=== PATIENT | female | born 1965 | race Caucasian/White ===

== ENCOUNTER 2022-06-02 11:27 | Emergency (ER) | payer MEDICARE, MEDICAID, SELFPAY ==
[2022-06-02 11:53] VITALS: BP 152/84; PULSE 100; RESP 20; TEMP 36.8; O2SAT 100; BMI 27.0
--- NOTE | 2022-06-02 14:58 | ED.SKABFB ---
HPI - Skin/Abscess/Foreign Bdy General Time Seen by Provider: 14:58 Date Seen: 06/02/22 Chief complaint: Skin/Abscess/Foreign Body Stated complaint: Cellulitis on left leg Time Seen by Provider: 06/02/22 11:32 Source: RN notes reviewed, old records reviewed and other (Attendant) Mode of arrival: ambulatory Limitations: no limitations and other History of Present Illness HPI narrative: 56-year-old resident at [facility] with profound developmental delay, recurrent cellulitis, history right lower extremity wound, delayed healing comes to the emergency room with her inspector health care facilities for evaluation regarding redness on her left leg. This was noticed today and was worrisome for cellulitis. No recent injury in this area. Does not appear to be causing discomfort and has been no fever or vomiting. Also noted are small red spots along the neckline but not beneath any of the clothing. No history of respiratory distress, vomiting, fever. Cecil comes from seeing the dentist this morning. Had received 2 mg of Ativan prior to that appointment. Related Data Home Medications Medication Instructions Recorded Confirmed cranberry complex 06/02/22 fiber tab PO 06/02/22 fluoxetine 40 mg capsule mg 06/02/22 loratadine 10 mg tablet mg 06/02/22 multivitamin with folic acid 400 1 tab PO DAILY 06/02/22 06/02/22 mcg tablet (Daily-Kathya (with folic acid)) oxybutynin chloride 10 mg mg PO 06/02/22 tablet,extended release 24 hr xanazine 06/02/22 Previous Rx's Medication Instructions Recorded cefdinir 300 mg capsule 300 mg PO Q12H 7 days #14 caps 06/02/22 Allergies Allergy/AdvReac Type Severity Reaction Status Date / Time Sulfa (Sulfonamide Allergy Intermediate Verified 06/02/22 12:03 Antibiotics) Review of Systems Status of ROS: Reports: 6 or more systems reviewed and unremarkable except as noted in History and below Const: Denies: fever or chills ENMT: Denies: difficulty swallowing Cardio: Denies: swelling of feet/ankles or shortness of breath with exertion Resp: Denies: shortness of breath or cough GI: Denies: vomiting or difficulty swallowing Exam Narrative: Exam Narrative: PAST HISTORY:? Includes neurogenic bladder, recurrent UTIs though apparently it is a little less frequent. Excessive compulsive. Recurrent diarrhea/chronic diarrhea, chronic rhinitis, movement disorder, anxiety, hydronephrosis of the left kidney, history of lacunar infarcts noted on MRI in 2018, severe developmental delay,? Suprapubic catheter, history of cellulitis, stasis ulcer on right ankle, eczema, history of head banging, history of Raynaud's. Const: Vital Signs, click to edit/add: Vital Signs - 24 hr 06/02/22 11:53 Temperature 98.3 F Pulse Rate [Pulse Oximeter] 100 Respiratory Rate 20 Blood Pressure [Ri ght Upper Arm] 152/84 H Pulse Oximetry 100 Oxygen Delivery Me thod Room Air Patient is awake and nontoxic in appearance. I have met Cecil in the past. She is fairly cooperative with exam. On her neck area and she has scattered less than 10 erythematous non papular spots. Slightly raised. One the of these areas noted to be approximately quarter-sized. Not warm to the touch. No drainage. Heart with regular rate and rhythm. Lungs are clear to auscultation. Lower extremities show left leg to have fairly well-demarcated erythema at the mid to distal aspect of the calf. I do not note any obvious open wounds or weeping here this area is warm to the touch. It is not swollen. Documenting provider has reviewed patient's vital signs: yes Course Course Hospital Course: Patient noted to have previous history of cellulitis. Cultures from a wound in 2014 note Enterobacter resistant to Ancef but per susceptible to 3rd generation cephalosporin. Strep faecalis also noted to be present in this wound with resistance to doxycycline. Vital Signs Vital signs: Initial Vital Signs Temperature 98.3 F 06/02/22 11:53 Temperature Source Temporal Artery Scan 06/02/22 11:53 Pulse Rate 100 06/02/22 11:53 Respiratory Rate 20 06/02/22 11:53 Blood Pressure 152/84 H 06/02/22 11:53 Blood Pressure Mean 106 06/02/22 11:53 Blood Pressure Position Sitting 06/02/22 11:53 Pulse Oximetry 100 06/02/22 11:53 Oxygen Delivery Method 06/02/22 11:53 Vital Signs Temperature 98.3 F 06/02/22 11:53 Pulse Rate 100 06/02/22 11:53 Respiratory Rate 20 06/02/22 11:53 Blood Pressure 152/84 H 06/02/22 11:53 Pulse Oximetry 100 06/02/22 11:53 Oxygen Delivery Method 06/02/22 11:53 Temperature 98.3 F 06/02/22 11:53 Pulse Rate 100 06/02/22 11:53 Respiratory Rate 20 06/02/22 11:53 Blood Pressure 152/84 H 06/02/22 11:53 Pulse Oximetry 100 06/02/22 11:53 Oxygen Delivery Method 06/02/22 11:53 MDM - Skin/Abscess/Foreign Bdy MDM Narrative Medical decision making narrative: 1. Cellulitis-at this time no evidence of fever, weeping or open wound. However, concerning for cellulitis as this area is warm to the touch. Given history of a 1st generation resistant organism and doxycycline resistant organism will start patient on a 3rd generation cephalosporin Omnicef. Omnicef 300 mg p.o. b.i.d. x7 days. I would like patient to follow up with with her primary MD in 72 hours for recheck. If she has only modest improvement of her symptoms would recommend extending Omnicef to 10 days. If patient is noted to have worsening symptoms she will likely need IV antibiotics he. This would require sedation in order to do blood work. 2. Bug bites-patient appears to have multiple bug bites on neck and front of chest. Perhaps 1 of those has mild erythema indicating a hive like formation. This is only in the exposed skin and nothing under the shirt and thus I do think this is likely dogs. No evidence of infection and would continue to monitor. 3. Disposition-patient discharged home in the care of her inspector health care facilities. Return as needed to the emergency room for worsening symptoms. Medical Records Attestation: I reviewed the patient's medical records. Discharge Plan Discharge Clinical Impression: Cellulitis Patient Disposition: Home, Self-Care Condition: Unchanged Instructions: Cellulitis (ED) Additional Instructions: Start antibiotic today. Follow-up with primary MD if not improving in the next 48 hours. Return to the emergency room for worsening symptoms especially fever and increasing redness. Return as needed. Prescriptions: New cefdinir 300 mg capsule 300 mg PO Q12H 7 Days Qty: 14 0RF No Action fluoxetine 40 mg capsule oxybutynin chloride 10 mg tablet extended release 24hr PO Label Comments: TAKE TWO TABLETS BY MOUTH EVERY DAY GENERIC FOR DITROPAN XL loratadine 10 mg tablet Label Comments: TAKE ONE TABLET BY MOUTH EVERY DAY FOR ANTIHISTAMINE xanazine 12.5 mg multivitamin with folic acid [Daily-Kathya (with folic acid)] 400 mcg tablet 1 tab PO DAILY cranberry complex fiber Tablet PO Follow Up/Referrals: Car Mock MD [Primary Care Provider] - Stand Alone Forms: [employer] Info Instructions
== END 2022-06-02 15:46 | disposition home or self-care (01) ==
PROVIDERS: Emergency Provider Family Medicine; PCP Family Medicine
DX: L03.116 Cellulitis of left lower limb (principal)
CPT/HCPCS: 99283; 99284

== ENCOUNTER 2023-04-12 09:07 | Outpatient (CLI) | payer MEDICARE, MEDICAID, SELFPAY | END 2023-04-12 09:08 | disposition home or self-care (01) | PROVIDERS: PCP Family Medicine; Visit Provider Nurse Practitioner Family | DX: I87.331 Chronic venous hypertension (idiopathic) with ulcer and inflammation of right lower extremity (principal); L97.319 Non-pressure chronic ulcer of right ankle with unspecified severity; I87.2 Venous insufficiency (chronic) (peripheral); L30.9 Dermatitis, unspecified; F79 Unspecified intellectual disabilities | CPT/HCPCS: 99214 ==

== ENCOUNTER 2023-04-19 13:39 | Outpatient (CLI) | payer MEDICARE, MEDICAID, SELFPAY | END 2023-04-19 13:40 | disposition home or self-care (01) | LOC: WOUND 13:40 | PROVIDERS: PCP Family Medicine; Visit Provider Nurse Practitioner Family | DX: I87.331 Chronic venous hypertension (idiopathic) with ulcer and inflammation of right lower extremity (principal); L97.319 Non-pressure chronic ulcer of right ankle with unspecified severity; I87.2 Venous insufficiency (chronic) (peripheral) | CPT/HCPCS: 11042 ==

== ENCOUNTER 2023-05-03 08:54 | Outpatient (CLI) | payer MEDICARE, MEDICAID, SELFPAY | END 2023-05-03 08:55 | disposition home or self-care (01) | LOC: WOUND 08:54 | PROVIDERS: PCP Family Medicine; Visit Provider Nurse Practitioner Family | DX: I87.331 Chronic venous hypertension (idiopathic) with ulcer and inflammation of right lower extremity (principal); L97.312 Non-pressure chronic ulcer of right ankle with fat layer exposed | CPT/HCPCS: 97597 ==

== ENCOUNTER 2023-05-10 09:00 | Outpatient (CLI) | payer MEDICARE, MEDICAID, SELFPAY | END 2023-05-10 09:01 | disposition home or self-care (01) | LOC: WOUND 09:00 | PROVIDERS: PCP Family Medicine; Visit Provider Nurse Practitioner Family | DX: I87.331 Chronic venous hypertension (idiopathic) with ulcer and inflammation of right lower extremity (principal); L97.312 Non-pressure chronic ulcer of right ankle with fat layer exposed | CPT/HCPCS: 11042 ==

== ENCOUNTER 2023-05-17 09:07 | Outpatient (CLI) | payer MEDICARE, MEDICAID, SELFPAY | END 2023-05-17 09:08 | disposition home or self-care (01) | LOC: WOUND 09:07 | PROVIDERS: PCP Family Medicine; Visit Provider Nurse Practitioner Family | DX: I87.331 Chronic venous hypertension (idiopathic) with ulcer and inflammation of right lower extremity (principal); L97.312 Non-pressure chronic ulcer of right ankle with fat layer exposed | CPT/HCPCS: 97597 ==

== ENCOUNTER 2023-05-24 10:32 | Outpatient (CLI) | payer MEDICARE, MEDICAID, SELFPAY | END 2023-05-24 10:33 | disposition home or self-care (01) | LOC: WOUND 10:32 | PROVIDERS: PCP Family Medicine; Visit Provider Nurse Practitioner Family | DX: I87.331 Chronic venous hypertension (idiopathic) with ulcer and inflammation of right lower extremity (principal); L97.312 Non-pressure chronic ulcer of right ankle with fat layer exposed | CPT/HCPCS: 97597 ==

== ENCOUNTER 2023-05-31 11:38 | Outpatient (CLI) | payer MEDICARE, MEDICAID, SELFPAY | END 2023-05-31 11:39 | disposition home or self-care (01) | LOC: WOUND 11:38 | PROVIDERS: PCP Family Medicine; Visit Provider Nurse Practitioner Family | DX: I87.331 Chronic venous hypertension (idiopathic) with ulcer and inflammation of right lower extremity (principal); I87.2 Venous insufficiency (chronic) (peripheral); L97.312 Non-pressure chronic ulcer of right ankle with fat layer exposed | CPT/HCPCS: 97597 ==

== ENCOUNTER 2023-06-07 11:33 | Outpatient (CLI) | payer MEDICARE, MEDICAID, SELFPAY | END 2023-06-07 11:34 | disposition home or self-care (01) | LOC: WOUND 11:33 | PROVIDERS: PCP Family Medicine; Visit Provider Nurse Practitioner Family | DX: I87.331 Chronic venous hypertension (idiopathic) with ulcer and inflammation of right lower extremity (principal); I87.2 Venous insufficiency (chronic) (peripheral); L97.312 Non-pressure chronic ulcer of right ankle with fat layer exposed | CPT/HCPCS: 97602; 99213 ==

== ENCOUNTER 2023-06-14 11:23 | Outpatient (CLI) | payer MEDICARE, MEDICAID, SELFPAY | END 2023-06-14 11:24 | disposition home or self-care (01) | LOC: WOUND 11:23 | PROVIDERS: PCP Family Medicine; Visit Provider Nurse Practitioner Family | DX: I87.331 Chronic venous hypertension (idiopathic) with ulcer and inflammation of right lower extremity (principal); L97.312 Non-pressure chronic ulcer of right ankle with fat layer exposed | CPT/HCPCS: 97597 ==

== ENCOUNTER 2023-06-21 11:32 | Outpatient (CLI) | payer MEDICARE, MEDICAID, SELFPAY | END 2023-06-21 11:33 | disposition home or self-care (01) | LOC: WOUND 11:32 | PROVIDERS: PCP Family Medicine; Visit Provider Nurse Practitioner Family | DX: I87.331 Chronic venous hypertension (idiopathic) with ulcer and inflammation of right lower extremity (principal); L97.312 Non-pressure chronic ulcer of right ankle with fat layer exposed | CPT/HCPCS: 97602; 99213 ==

== ENCOUNTER 2023-06-28 11:28 | Outpatient (CLI) | payer MEDICARE, MEDICAID, SELFPAY | END 2023-06-28 11:29 | disposition home or self-care (01) | LOC: WOUND 11:28 | PROVIDERS: PCP Family Medicine; Visit Provider Nurse Practitioner Family | DX: I87.331 Chronic venous hypertension (idiopathic) with ulcer and inflammation of right lower extremity (principal); L97.312 Non-pressure chronic ulcer of right ankle with fat layer exposed; F79 Unspecified intellectual disabilities | CPT/HCPCS: 97602; 99213 ==

== ENCOUNTER 2023-07-05 11:28 | Outpatient (CLI) | payer MEDICARE, MEDICAID, SELFPAY | END 2023-07-05 11:29 | disposition home or self-care (01) | LOC: WOUND 11:28 | PROVIDERS: PCP Family Medicine; Visit Provider Family Medicine | DX: I87.331 Chronic venous hypertension (idiopathic) with ulcer and inflammation of right lower extremity (principal); L97.312 Non-pressure chronic ulcer of right ankle with fat layer exposed; I87.2 Venous insufficiency (chronic) (peripheral) | CPT/HCPCS: 97602; 99213 ==

== ENCOUNTER 2023-07-12 11:30 | Outpatient (CLI) | payer MEDICARE, MEDICAID, SELFPAY | END 2023-07-12 11:31 | disposition home or self-care (01) | LOC: WOUND 11:31 | PROVIDERS: PCP Family Medicine; Visit Provider Nurse Practitioner Family | DX: I87.331 Chronic venous hypertension (idiopathic) with ulcer and inflammation of right lower extremity (principal); I87.2 Venous insufficiency (chronic) (peripheral); L97.312 Non-pressure chronic ulcer of right ankle with fat layer exposed | CPT/HCPCS: 97602; 99213 ==

== ENCOUNTER 2023-08-09 09:03 | Outpatient (CLI) | payer MEDICARE, MEDICAID, SELFPAY | END 2023-08-09 09:04 | disposition home or self-care (01) | LOC: WOUND 09:03 | PROVIDERS: PCP Family Medicine; Visit Provider Nurse Practitioner Family | DX: I87.331 Chronic venous hypertension (idiopathic) with ulcer and inflammation of right lower extremity (principal); L97.312 Non-pressure chronic ulcer of right ankle with fat layer exposed; I87.2 Venous insufficiency (chronic) (peripheral) | CPT/HCPCS: 97597 ==

== ENCOUNTER 2023-08-24 11:35 | Outpatient (CLI) | payer MEDICARE, MEDICAID, SELFPAY | END 2023-08-24 11:36 | disposition home or self-care (01) | LOC: WOUND 11:35 | PROVIDERS: PCP Family Medicine; Visit Provider Physician Assistant | DX: I87.331 Chronic venous hypertension (idiopathic) with ulcer and inflammation of right lower extremity (principal); I87.2 Venous insufficiency (chronic) (peripheral); L97.318 Non-pressure chronic ulcer of right ankle with other specified severity | CPT/HCPCS: 97597 ==

== ENCOUNTER 2023-09-06 11:03 | Outpatient (CLI) | payer MEDICARE, MEDICAID, SELFPAY | END 2023-09-06 11:04 | disposition home or self-care (01) | LOC: WOUND 11:03 | PROVIDERS: PCP Family Medicine; Visit Provider Nurse Practitioner Family | DX: I87.331 Chronic venous hypertension (idiopathic) with ulcer and inflammation of right lower extremity (principal); I87.2 Venous insufficiency (chronic) (peripheral); L97.318 Non-pressure chronic ulcer of right ankle with other specified severity | CPT/HCPCS: G0463 ==

== ENCOUNTER 2024-03-14 17:37 | Outpatient (CLI) | payer MEDICARE, MEDICAID, SELFPAY | END 2024-03-14 17:38 | disposition home or self-care (01) | LOC: NFLDREF 03-16 10:35 | PROVIDERS: PCP Family Medicine; Referring Provider Family Medicine; Visit Provider Nurse Practitioner Family | DX: N30.00 Acute cystitis without hematuria (principal) | CPT/HCPCS: 87086; 87186 ==

== ENCOUNTER 2024-05-25 08:38 | Emergency (ER) | payer MEDICARE, MEDICAID, SELFPAY ==
[2024-05-25 08:46] VITALS: BP 178/84; PULSE 103; RESP 16; TEMP 36.5; O2SAT 100
[2024-05-25] MEDS: LORazepam 1 MG TABLET PO (09:55)
--- NOTE | 2024-05-25 10:16 | ED_ITS ---
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 Patient has a chronic suprapubic catheter in place and the staff noticed that the connection between the tube in the bag was cracked. Generally she gets her catheter changed at the house by their nurse, they could not get a hold of the nurse today and so they brought her to the ER. Related Data Home Medications ?Medication ?Instructions ?Recorded ?Confirmed cranberry complex 06/02/22 10/06/23 fiber tab PO 06/02/22 10/06/23 fluoxetine 40 mg capsule mg 06/02/22 10/06/23 loratadine 10 mg tablet mg 06/02/22 10/06/23 multivitamin with folic acid 400 1 tab PO DAILY 06/02/22 10/06/23 mcg tablet (Daily-Kathya (with folic acid)) oxybutynin chloride 10 mg mg PO 06/02/22 10/06/23 tablet,extended release 24 hr xanazine 06/02/22 10/06/23 calcium carbonate 400 mg/5 mL oral mg PO 03/14/24 03/14/24 suspension lorazepam 1 mg tablet 1 mg PO BID 03/14/24 03/14/24 simethicone 125 mg capsule (Gas 125 mg PO TID-QID PRN 03/14/24 03/14/24 Relief (simethicone)) tetrabenazine 12.5 mg tablet 12.5 mg PO QDAY 03/14/24 03/14/24 Previous Rx's ?Medication ?Instructions ?Recorded guaifenesin 1,200 mg tablet, 1,200 mg PO BID #60 tabs 09/01/23 extended release 12 hr Allergies Allergy/AdvReac Type Severity Reaction Status Date / Time Sulfa (Sulfonamide Allergy Intermediate Verified 03/14/24 17:17 Antibiotics) Review of Systems Status of ROS: Reports: 6 or more systems reviewed and unremarkable except as noted in History and below (Obtained per staff) [facility] Medical History Profound developmental delay ?R62.50 - Unspecified lack of expected normal physiological development in childhood (ICD-10) Social History Smoking Status: Never smoker Do you use any of these nicotine containing products: None Second hand tobacco smoke exposure: No How often do you have a drink containing alcohol: never How often do you have six or more drinks on one occasion: Never AUDIT-C Alcohol total score: 0 Non-prescribed substance use: denies use service: No Exam Narrative: Exam Narrative: Well-nourished patient patient in no acute distress. Patient is nonverbal, not cooperative. She does not appear ill or toxic. Unable to perform an abdominal exam, suprapubic catheter is in place without evidence of infection or maceration of the skin from a very quick view. The tube that connects to the bag on the other and does have a crack in it at the site of insertion into the bag. Const: Vital Signs, click to edit/add: Vital Signs - 24 hr 05/25/24 08:46 Temperature 97.7 F Pulse Rate [Pulse Oximeter] 103 H Respiratory Rate 16 Blood Pressure [Ri ght Upper Arm] 178/84 H Pulse Oximetry 100 Oxygen Delivery Me thod Room Air Course Course ED Course: I spoke to Minnie at [facility] who stated that they can get a hold of their nurse today. We discussed that this is not an emergency that needs to be done in the emergency department and that it could wait another couple of days even until they can get a hold of their nurse. Minnie and the patient's POA would like the catheter changed here. They stated that they give her Ativan 1 they have to do this procedure at the house in the requesting that we do the same. Therefore, we did give her a dose of Ativan while she was here. Unfortunately, it was later discovered that we do not have the appropriate equipment, specifically a 22 Palestinian, to change her catheter. This was discussed with Minnie. Patient will be sent back to [facility] with the do have the proper equipment and again, the catheter can be changed any time the next several days. This is not a medical emergency. Vital Signs Vital signs: Initial Vital Signs Temperature 97.7 F 05/25/24 08:46 Temperature Source Temporal Artery Scan 05/25/24 08:46 Pulse Rate 103 H 05/25/24 08:46 Pulse Rhythm Regular 05/25/24 08:46 Pulse Strength 3+ Normal 05/25/24 08:46 Respiratory Rate 16 05/25/24 08:46 Blood Pressure 178/84 H 05/25/24 08:46 Blood Pressure Mean 115 H 05/25/24 08:46 Blood Pressure Position Sitting 05/25/24 08:46 Pulse Oximetry 100 05/25/24 08:46 Oxygen Delivery Method Room Air 05/25/24 08:46 Vital Signs Temperature 97.7 F 05/25/24 08:46 Pulse Rate 103 H 05/25/24 08:46 Respiratory Rate 16 05/25/24 08:46 Blood Pressure 178/84 H 05/25/24 08:46 Pulse Oximetry 100 05/25/24 08:46 Oxygen Delivery Method Room Air 05/25/24 08:46 Temperature 97.7 F 05/25/24 08:46 Pulse Rate 103 H 05/25/24 08:46 Respiratory Rate 16 05/25/24 08:46 Blood Pressure 178/84 H 05/25/24 08:46 Pulse Oximetry 100 05/25/24 08:46 Oxygen Delivery Method Room Air 05/25/24 08:46 Medications Administered Medications: Discontinued Medications Generic Name Dose Route Start Last Admin Trade Name Freq PRN Reason Stop Dose Admin Lorazepam 1 mg 05/25/24 09:46 05/25/24 09:55 Lorazepam 1 Mg Tablet PO 05/25/24 09:47 1 mg ONCE ONE Administration Medical Decision Making MDM Narrative Medical decision making narrative: Small crack in the distal tubing of the suprapubic catheter. Plan per above Discharge Plan Discharge Clinical Impression: Chronic suprapubic catheter, Suprapubic catheter dysfunction Patient Disposition: Home w/ Parent or Adult Condition: Unchanged Additional Instructions: We unfortunately did not have the proper equipment to change her catheter in the emergency department. Recommend changing it at the house as you normally would. Can be done in the next several days. Prescriptions: No Action guaifenesin 1,200 mg tablet extended release 12hr 1,200 mg PO BID Qty: 60 0RF tetrabenazine 12.5 mg tablet 12.5 mg PO QDAY simethicone [Gas Relief (simethicone)] 125 mg capsule 125 mg PO TID-QID PRN lorazepam 1 mg tablet 1 mg PO BID calcium carbonate 400 mg/5 mL suspension PO fluoxetine 40 mg capsule oxybutynin chloride 10 mg tablet extended release 24hr PO Patient Comments: TAKE TWO TABLETS BY MOUTH EVERY DAY GENERIC FOR DITROPAN XL loratadine 10 mg tablet Patient Comments: TAKE ONE TABLET BY MOUTH EVERY DAY FOR ANTIHISTAMINE xanazine 12.5 mg multivitamin with folic acid [Daily-Kathya (with folic acid)] 400 mcg tablet 1 tab PO DAILY cranberry complex fiber Tablet PO Follow Up/Referrals: Lachelle Schilling DO [Primary Care Provider] - Stand Alone Forms: [facility] Info Instructions
--- NOTE | 2024-05-25 10:25 | ED.NURSE ---
Spoke with Minnie who is the warehouseman at [facility]. Our supply chain does not carry the 22Fr 10cc catheter that patient currently has in place. The tubing where it is broken is at the hub site where the catheter and the bag connect and it is currently not leaking and it is secure. Spoke with who recommended that patient get her catheter changed back at [facility] with the proper size. Spoke with Minnie who stated they are out of supplies as well but did order some today and should be arriving today or tomorrow. Minnie will reach out to their nurse Jeri who does the exchanges. All questions answered and patient left with Anali from [facility] staff.
== END 2024-05-25 10:31 | disposition home or self-care (01) ==
PROVIDERS: Emergency Provider Family Medicine; PCP Family Medicine
DX: T83.198A Other mechanical complication of other urinary devices and implants, initial encounter (principal)
CPT/HCPCS: 99283; 99284; A9270

== ENCOUNTER 2024-07-17 07:45 | Outpatient (CLI) | payer MEDICARE, MEDICAID, SELFPAY | END 2024-07-17 07:46 | disposition home or self-care (01) | LOC: AMB 07-19 00:27 | PROVIDERS: PCP Family Medicine; Visit Provider Family Medicine | DX: S09.90XA Unspecified injury of head, initial encounter (principal); W18.30XA Fall on same level, unspecified, initial encounter; Y92.002 Bathroom of unspecified non-institutional (private) residence as the place of occurrence of the external cause | CPT/HCPCS: A0425; A0427 ==

== ENCOUNTER 2024-07-17 08:09 | Emergency (ER) | payer MEDICARE, MEDICAID, SELFPAY ==
[2024-07-17] VITALS (36 sets, daily range): BP systolic 113–191; BP diastolic 60–114; PULSE 51–108; RESP 16–18; TEMP 37.3; O2SAT 93–100; BMI 20.9
[2024-07-17] MEDS: MORPHINE 4 MG/ML INJ IVP (08:36)
[2024-07-17 08:37] LABS: Basophils Absolute Auto 0.02 K/uL (0.00-0.30); Basophils Percent Auto 0.4 % (0.0-3.0); Eosinophils Absolute Auto 0.08 K/uL (0.00-0.50); Eosinophils Percent Auto 1.7 % (0.0-7.0); Hematocrit 40.5 % (33.0-51.0); Hemoglobin* 12.9 gm/dL (12.0-16.0); Lymphocytes Absolute Auto 1.06 K/uL (0.90-2.90); Lymphocytes Percent Auto 22.1 % (20-44); Mean Corpuscular HGB Conc 32 gm/dL (32-36); Mean Corpuscular Hemoglobin 30 pg (26-34); Mean Corpuscular Volume 94 fL (80-100); Monocytes Percent Auto 9.2 % (0.0-11.0); Neutrophils Absolute Auto 3.19 K/uL (1.7-7.0); Neutrophils Percent Auto 66.6 % (42.0-72.0); Platelet Count* 150 K/uL (140-440); RDW Coefficient of Variation % 14.5 % (11.5-15.5); Red Blood Count 4.33 m/uL (4.00-5.20); White Blood Count* 4.79 K/uL (4.50-11.00)
[2024-07-17] MEDS: LIDOCAINE 1%-EPI 1:100,000 5 ML INFILTRATI (08:37)
[2024-07-17 08:51] LABS: Chloride* 99 mmol/L (96-114); Sodium* 133 mmol/L (135-149)
[2024-07-17 08:54] LABS: Anion Gap 7 mEq/L (7-15); Blood Urea Nitrogen* 25 mg/dL (7-30); Calcium* 9.7 mg/dL (8.4-10.6); Carbon Dioxide* 27 mmol/L (20-32); Creatinine* 0.8 mg/dL (0.5-1.5); Est. Creatinine Clearance* 54.89; Estimated Glomerular Filt Rate 85 ml/min; Glucose* 103 mg/dL (60-115); Slide Review Reflex No
--- NOTE | 2024-07-17 10:13 | CRLHL7_ITS ---
For Patients: As a result of the Century Cures Act, medical imaging exams and procedure reports are released immediately into your electronic medical record. You may view this report before your referring provider. If you have questions, please contact your health care provider. INDICATION: Fall, head laceration TECHNIQUE: CT head without contrast. COMPARISON: Head CT 12/26/2019 FINDINGS: CSF spaces: Within normal limits for age. Brain parenchyma: The mathew-white differentiation is normal. No sign of mass, hemorrhage, or midline shift. Skull base and calvarium: The visualized paranasal sinuses and mastoid air cells demonstrate no acute or significant findings. The visualized orbits are grossly unremarkable. No skull fractures. Frontal skin queenie and scalp hematoma. Atherosclerosis. IMPRESSION: Frontal scalp hematoma without calvarial fracture or intracranial bleed. Please note that all CT scans at this facility use dose modulation, iterative reconstruction, and/or weight-based dosing when appropriate to reduce radiation dose to as low as reasonably achievable. Dictated by Colby Bello MD @ 07/17/2024 11:13:33 AM (Electronically Signed)
[2024-07-17] MEDS: LORazepam 2 MG/ML inj 1 MG IVP (10:22)
--- NOTE | 2024-07-17 11:10 | CRLHL7_ITS ---
For Patients: As a result of the Century Cures Act, medical imaging exams and procedure reports are released immediately into your electronic medical record. You may view this report before your referring provider. If you have questions, please contact your health care provider. Indication: Fall Comparison: None available. Technique: AP, lateral, and oblique views right 1st digit were obtained. Findings: Mildly limited due to lack of patient positioning on PA projection without evidence of displaced fracture. Degenerative change of the interphalangeal joint. Mild soft tissue swelling of the 1st digit. Impression: Degenerative changes of the distal interphalangeal joint. Mildly limited evaluation on the AP projection due to patient positioning. Mild soft tissue swelling without evidence of displaced fracture. Dictated by Dustin Goldstein MD @ 07/17/2024 12:16:03 PM (Electronically Signed)
--- NOTE | 2024-07-17 11:31 | ED.GENADULT ---
HPI - General Adult General Date Seen: 07/17/24 Chief complaint: Laceration/Wound Stated complaint: head laceration - fall in shower Time Seen by Provider: 07/17/24 08:20 Source: RN notes reviewed and other Mode of arrival: EMS Limitations: physical limitation History of Present Illness HPI narrative: Patient is a 58-year-old woman who resides at [facility]. She has developmental delay and is essentially non communicative. She had an unwitnessed fall today in the bathroom, pen[facility] staff say that she frequently loses her balance particularly when she is in hurry, and they suspect that she slipped and fell. Medics report that they believe she hit her head on the sink. alf staff heard her fall and went in right away, there was quite a bit of blood on the scene, but there was no reported loss of consciousness. Patient is not able to provide any history. Medics report a large scalp laceration. She is not anticoagulated. Related Data Home Medications ?Medication ?Instructions ?Recorded ?Confirmed cranberry complex 1 cap PO BID 06/02/22 07/17/24 fiber 1 tab PO DAILY 06/02/22 07/17/24 fluoxetine 40 mg capsule 40 mg PO DAILY 06/02/22 07/17/24 loratadine 10 mg tablet 10 mg PO DAILY 06/02/22 07/17/24 multivitamin with folic acid 400 1 tab PO DAILY 06/02/22 10/06/23 mcg tablet (Daily-Kathya (with folic acid)) oxybutynin chloride 10 mg mg PO 06/02/22 10/06/23 tablet,extended release 24 hr xanazine 06/02/22 10/06/23 calcium carbonate 400 mg/5 mL oral 400 mg PO 03/14/24 03/14/24 suspension lorazepam 1 mg tablet 1 mg PO BID 03/14/24 07/17/24 simethicone 125 mg capsule (Gas 125 mg PO TID-QID PRN 03/14/24 03/14/24 Relief (simethicone)) tetrabenazine 12.5 mg tablet 12.5 mg PO QDAY 03/14/24 07/17/24 Previous Rx's ?Medication ?Instructions ?Recorded guaifenesin 1,200 mg tablet, 1,200 mg PO BID #60 tabs 01/10/24 extended release 12 hr Allergies Allergy/AdvReac Type Severity Reaction Status Date / Time Sulfa (Sulfonamide Allergy Intermediate Verified 07/17/24 08:56 Antibiotics) Review of Systems Status of ROS: Reports: unobtainable due to medical condition [facility] Medical History Profound developmental delay ?R62.50 - Unspecified lack of expected normal physiological development in childhood (ICD-10) Social History Smoking Status: Never smoker Do you use any of these nicotine containing products: None Second hand tobacco smoke exposure: No How often do you have a drink containing alcohol: never How often do you have six or more drinks on one occasion: Never AUDIT-C Alcohol total score: 0 Non-prescribed substance use: denies use service: No Exam Narrative: Exam Narrative: Primary survey: Airway: Patent. Breathing: Nonlabored. Lungs clear. Circulation: Pulses intact. No external bleeding. Disability: At baseline, nonverbal. Eyes open. Moves all extremities spontaneously. Secondary survey: Vital signs reviewed In general, an alert, nontoxic woman. Head: She has a 14 cm laceration which extends from the vertex of her head down to the lower forehead. There was a fair amount of blood on the dressing, though no active bleeding when the dressing was removed. Eyes: Pupils are equal and reactive. ENT: No facial trauma. Dentition intact. Neck: No apparent posterior cervical tenderness. Chest: No visible signs of chest trauma. No tenderness to palpation. Heart regular rate and rhythm. Lungs clear bilaterally. Abdomen: No visible signs of trauma. Soft, nondistended, nontender to palpation. Back: No visible signs of trauma. Nontender to palpation. Pelvis: Stable, nontender. Extremities: Atraumatic and nontender to palpation on my initial exam. alf staff noted that her thumb seem to be swollen later in her ER stay. Neurologic: Alert, she does a lot of trying to set up, moves all extremities, according to penitentiary staff does not like to be touched and so they anticipated this would cause some increased anxiety and agitation. Skin: Warm and dry. Const: Vital Signs, click to edit/add: Vital Signs - 24 hr 07/17/24 08:10 07/17/24 08:30 07/17/24 08:40 Temperature Pulse Rate Pulse Rate [Pulse Oximeter] 92 94 Respiratory Rate 16 16 Blood Pressure Blood Pressure [Le ft Upper Arm] 162/85 H 170/94 H Pulse Oximetry 95 95 95 Oxygen Delivery Me thod Room Air Room Air 07/17/24 08:44 07/17/24 08:50 07/17/24 09:00 Temperature 99.1 F Pulse Rate Pulse Rate [Pulse Oximeter] 108 H 85 85 Respiratory Rate 18 Blood Pressure Blood Pressure [Le ft Upper Arm] 191/114 H 163/70 H 171/78 H Pulse Oximetry 96 95 97 Oxygen Delivery Me thod Room Air Room Air 07/17/24 09:10 07/17/24 09:20 07/17/24 09:30 Temperature Pulse Rate Pulse Rate [Pulse Oximeter] 89 63 64 Respiratory Rate 16 16 Blood Pressure Blood Pressure [Le ft Upper Arm] 162/79 H 147/76 H 142/79 H Pulse Oximetry 96 95 95 Oxygen Delivery Me thod Room Air Room Air Room Air 07/17/24 09:40 07/17/24 09:49 07/17/24 09:50 Temperature Pulse Rate 58 L 64 Pulse Rate [Pulse Oximeter] 75 Respiratory Rate Blood Pressure Blood Pressure [Le ft Upper Arm] 155/60 H Pulse Oximetry 93 97 96 Oxygen Delivery Me thod Room Air 07/17/24 10:00 07/17/24 10:02 07/17/24 10:10 Temperature Pulse Rate 63 71 71 Pulse Rate [Pulse Oximeter] Respiratory Rate Blood Pressure 155/94 H Blood Pressure [Le ft Upper Arm] Pulse Oximetry 97 95 96 Oxygen Delivery Me thod 07/17/24 10:20 07/17/24 10:30 07/17/24 10:32 Temperature Pulse Rate 55 L 70 62 Pulse Rate [Pulse Oximeter] Respiratory Rate Blood Pressure 131/62 Blood Pressure [Le ft Upper Arm] Pulse Oximetry 98 93 95 Oxygen Delivery Me thod 07/17/24 10:46 07/17/24 10:50 07/17/24 11:00 Temperature Pulse Rate 71 58 L 56 L Pulse Rate [Pulse Oximeter] Respiratory Rate Blood Pressure Blood Pressure [Le ft Upper Arm] Pulse Oximetry 94 96 94 Oxygen Delivery Me thod 07/17/24 11:02 07/17/24 11:10 07/17/24 11:20 Temperature Pulse Rate 59 L 55 L 62 Pulse Rate [Pulse Oximeter] Respiratory Rate Blood Pressure 127/69 Blood Pressure [Le ft Upper Arm] Pulse Oximetry 95 98 98 Oxygen Delivery Me thod 07/17/24 11:30 07/17/24 11:34 07/17/24 11:35 Temperature Pulse Rate 67 60 64 Pulse Rate [Pulse Oximeter] Respiratory Rate Blood Pressure 126/108 H Blood Pressure [Le ft Upper Arm] Pulse Oximetry 97 100 97 Oxygen Delivery Me thod 07/17/24 11:40 07/17/24 11:50 07/17/24 12:00 Temperature Pulse Rate 54 L 54 L 54 L Pulse Rate [Pulse Oximeter] Respiratory Rate Blood Pressure Blood Pressure [Le ft Upper Arm] Pulse Oximetry 96 99 96 Oxygen Delivery Me thod 07/17/24 12:01 07/17/24 12:10 Temperature Pulse Rate 56 L 59 L Pulse Rate [Pulse Oximeter] Respiratory Rate Blood Pressure 131/61 Blood Pressure [Le ft Upper Arm] Pulse Oximetry 98 98 Oxygen Delivery Me thod Course Course ED Course: TTA was called prior to patient's arrival. She presents with a fairly massive scalp laceration but no other apparent injuries at the time of my initial evaluation. Fall from standing, not anticoagulated. I do not think she needs additional imaging aside from head and neck. We did decide to address the laceration prior to imaging given that she is at baseline mental status, no reported loss of consciousness, no anticoagulation. I was not certain whether she would require some sort of sedation for imaging. She received 2 mg of oral Ativan at the [facility] after this happened as they were anticipating some difficulty with cooperation here. An IV was established, I did draw basic labs and gave her 4 mg of IV morphine. Labs are notable for hemoglobin of 12.9, metabolic panel is unremarkable. Procedure note: The wound was initially anesthetized with lidocaine with epinephrine. After this, she did have evidence of 1 small arterial bleed and this was tied off with 5-0 Vicryl. After that, we had good hemostasis. The wound was irrigated with copious sterile water. Galea is intact, no foreign body identified. I closed the scalp portion of this wound with queenie. At the hairline, I transitioned to sutures. I placed 4 simple interrupted deep sutures with 5-0 Vicryl to approximate the wound edges. I then placed superficial simple interrupted sutures with 5 0 nylon to close the skin. We did have to restrain her to some degree with the assistance of penitentiary staff to complete repair of the laceration but overall she tolerated this well. She had an additional mg of IV Ativan and then we were able to get a CT of the head which by my review shows no intracranial hemorrhage. Final radiology review is likewise negative for acute finding, linked below. Re-evaluation of her right thumb does show little bit of bruising along the proximal phalanx, x-rays by my review are negative. Radiology read shows degenerative changes of the D IP and mild soft tissue swelling without evidence of displaced fracture. Overall, I think she would do better leaving her out of a splint given negative x-rays. Reviewed basic wound care, staple removal in about 10 days, suture removal in about 7 days, return for signs of wound infection or more serious head injury. Reassess thumb with primary care if she seems to be having a lot of discomfort. Vital Signs Vital signs: Initial Vital Signs Pulse Oximetry 95 07/17/24 08:10 Vital Signs Pulse Oximetry 95 07/17/24 08:10 Temperature 99.1 F 07/17/24 08:44 Pulse Rate 59 L 07/17/24 12:10 Respiratory Rate 16 07/17/24 09:30 Blood Pressure 131/61 07/17/24 12:01 Pulse Oximetry 98 07/17/24 12:10 Oxygen Delivery Method Room Air 07/17/24 09:40 Medications Administered Medications: Discontinued Medications Generic Name Dose Route Start Last Admin Trade Name Bryanq PRN Reason Stop Dose Admin Lidocaine/Epinephrine 5 ml 07/17/24 08:22 07/17/24 08:37 Lidocaine 1%-Epi 1:100,000 INFILTRATI 07/17/24 08:23 5 ml ONCE ONE Administration Lorazepam 1 mg 07/17/24 10:12 07/17/24 10:22 Lorazepam 2 Mg/Ml Inj IVP 07/17/24 10:13 1 mg ONCE ONE Administration Morphine Sulfate 4 mg 07/17/24 08:22 07/17/24 08:36 Morphine 4 Mg/Ml Inj IVP 07/17/24 08:23 4 mg ONCE ONE Administration Medical Decision Making Lab Data Labs: Lab Results 07/17/24 Range/Units 08:22 WBC 4.79 (4.50-11.00) K/uL RBC 4.33 (4.00-5.20) m/uL Hgb 12.9 (12.0-16.0) gm/dL Hct 40.5 (33.0-51.0) % MCV 94 (80-100) fL MCH 30 (26-34) pg MCHC 32 (32-36) gm/dL RDW Coeff of Alvaro 14.5 (11.5-15.5) % Plt Count 150 (140-440) K/uL Neut % (Auto) 66.6 (42.0-72.0) % Lymph % (Auto) 22.1 (20-44) % [place] % (Auto) 9.2 (0.0-11.0) % Eos % (Auto) 1.7 (0.0-7.0) % Baso % (Auto) 0.4 (0.0-3.0) % Neut # (Auto) 3.19 (1.7-7.0) K/uL Lymph # (Auto) 1.06 (0.90-2.90) K/uL [place] # (Auto) 0.40 (0.00-0.90) K/UL Eos # (Auto) 0.08 (0.00-0.50) K/uL Baso # (Auto) 0.02 (0.00-0.30) K/uL Abs Immat Gran (auto) 0.00 (0.00-0.30) K/uL Imm/Tot Granulo (auto) 0.0 % Sodium 133 L (135-149) mmol/L Potassium 4.0 (3.6-5.1) mmol/L Chloride 99 (96-114) mmol/L Carbon Dioxide 27 (20-32) mmol/L Anion Gap 7 (7-15) mEq/L BUN 25 (7-30) mg/dL Creatinine 0.8 (0.5-1.5) mg/dL Estimated Creat Clear 54.89 Estimated GFR 85 ml/min Glucose 103 (60-115) mg/dL Calcium 9.7 (8.4-10.6) mg/dL Imaging Data CT scan - head: Radiologist's impression: document embedded [address] [address] Diagnostic Imaging Report Patient: Cecil Simon MR#: [id number] : 1965 Acct:[id number] Loc: ED Service Date: 07/17/[address]: Ordering Physician: Chelsea Ron M.D. Date of Service: 07/17/24 Procedure(s): CT head/brain wo con Accession Number(s): [id number] cc: Chelsea Ron M.D.; Lachelle Schilling D.O.~ For Patients: As a result of the Cures Act, medical imaging exams and procedure reports are released immediately into your electronic medical record. You may view this report before your referring provider. If you have questions, please contact your health care provider. INDICATION: Fall, head laceration TECHNIQUE: CT head without contrast. COMPARISON: Head CT 12/26/2019 FINDINGS: CSF spaces: Within normal limits for age. Brain parenchyma: The mathew-white differentiation is normal. No sign of mass, hemorrhage, or midline shift. Skull base and calvarium: The visualized paranasal sinuses and mastoid air cells demonstrate no acute or significant findings. The visualized orbits are grossly unremarkable. No skull fractures. Frontal skin queenie and scalp hematoma. Atherosclerosis. IMPRESSION: Frontal scalp hematoma without calvarial fracture or intracranial bleed. Please note that all CT scans at this facility use dose modulation, iterative reconstruction, and/or weight-based dosing when appropriate to reduce radiation dose to as low as reasonably achievable. Dictated by Colby Bello MD @ 07/17/2024 11:13:33 AM Thumb x-ray: Attestation: I have reviewed the pertinent imaging results. Radiologist's impression: Patient: CECIL SIMON Facility: [facility] . Site : 1965 Study: XRay-Extremity Right THUMB 3V-07/17/2024 11:58:39 AM Ordering Physician: Ariadne Tran Final Report: Indication: Fall Comparison: None available. Technique: AP, lateral, and oblique views right 1st digit were obtained. Findings: Mildly limited due to lack of patient positioning on PA projection without evidence of displaced fracture. Degenerative change of the interphalangeal joint. Mild soft tissue swelling of the 1st digit. Impression: Degenerative changes of the distal interphalangeal joint. Mildly limited evaluation on the AP projection due to patient positioning. Mild soft tissue swelling without evidence of displaced fracture. Dictated by Dustin Goldstein MD @ 07/17/2024 12:16:03 PM Discharge Plan Discharge Clinical Impression: Laceration of head, complicated Patient Disposition: Home w/ Parent or Adult Instructions: Laceration (ED) Additional Instructions: The queenie should be removed in about 10 days. The sutures on the forehead should be removed in about [address] of the head does not show any intracranial injury. For altered mentation, repeated vomiting, or other worsening, or for signs of infection, return any time for re-evaluation. X-rays of the thumb are negative, if she seems to have considerable pain in this area, these could be repeated in a week or 2. Prescriptions: No Action guaifenesin 1,200 mg tablet extended release 12hr 1,200 mg PO BID Qty: 60 0RF tetrabenazine 12.5 mg tablet 12.5 mg PO QDAY simethicone [Gas Relief (simethicone)] 125 mg capsule 125 mg PO TID-QID PRN lorazepam 1 mg tablet 1 mg PO BID calcium carbonate 400 mg/5 mL suspension 400 mg PO fluoxetine 40 mg capsule 40 mg PO DAILY oxybutynin chloride 10 mg tablet extended release 24hr PO Patient Comments: TAKE TWO TABLETS BY MOUTH EVERY DAY GENERIC FOR DITROPAN XL loratadine 10 mg tablet 10 mg PO DAILY Patient Comments: TAKE ONE TABLET BY MOUTH EVERY DAY FOR ANTIHISTAMINE xanazine 12.5 mg multivitamin with folic acid [Daily-Kathya (with folic acid)] 400 mcg tablet 1 tab PO DAILY cranberry complex 1 cap PO BID fiber Tablet 1 tab PO DAILY Follow Up/Referrals: Lachelle Schilling DO [Primary Care Provider] - Stand Alone Forms: [facility]
== END 2024-07-17 12:58 | disposition home or self-care (01) ==
PROVIDERS: Emergency Provider Emergency Medicine; PCP Family Medicine
DX: S01.81XA Laceration without foreign body of other part of head, initial encounter (principal); W01.198A Fall on same level from slipping, tripping and stumbling with subsequent striking against other object, initial encounter; Y92.002 Bathroom of unspecified non-institutional (private) residence as the place of occurrence of the external cause
CPT/HCPCS: 12055; 12054; 36415; 70450; 73140; 80048; 85025; 94761; 96374; 96375; 99284; 99291; G0390; J2060; J2270

== ENCOUNTER 2024-09-06 10:04 | Outpatient (CLI) | payer MEDICARE, MEDICAID, SELFPAY | END 2024-09-06 10:05 | disposition home or self-care (01) | LOC: WOUND 10:04 | PROVIDERS: PCP Family Medicine; Visit Provider Nurse Practitioner Family | DX: I87.331 Chronic venous hypertension (idiopathic) with ulcer and inflammation of right lower extremity (principal); I73.9 Peripheral vascular disease, unspecified; L97.312 Non-pressure chronic ulcer of right ankle with fat layer exposed; F79 Unspecified intellectual disabilities | CPT/HCPCS: 11042; G0463 ==

== ENCOUNTER 2024-09-08 11:35 | Outpatient (CLI) | payer MEDICARE, MEDICAID, SELFPAY | END 2024-09-08 11:36 | disposition home or self-care (01) | LOC: WOUND 11:35 | PROVIDERS: PCP Family Medicine; Visit Provider Nurse Practitioner Family | DX: I87.331 Chronic venous hypertension (idiopathic) with ulcer and inflammation of right lower extremity (principal); I73.9 Peripheral vascular disease, unspecified; L97.312 Non-pressure chronic ulcer of right ankle with fat layer exposed | CPT/HCPCS: 29581 ==

== ENCOUNTER 2024-09-13 09:54 | Outpatient (CLI) | payer MEDICARE, MEDICAID, SELFPAY | END 2024-09-13 09:55 | disposition home or self-care (01) | LOC: WOUND 09:54 | PROVIDERS: PCP Family Medicine; Visit Provider Nurse Practitioner Family | DX: I87.331 Chronic venous hypertension (idiopathic) with ulcer and inflammation of right lower extremity (principal); L97.312 Non-pressure chronic ulcer of right ankle with fat layer exposed; I73.9 Peripheral vascular disease, unspecified; F79 Unspecified intellectual disabilities | CPT/HCPCS: G0463 ==

== ENCOUNTER 2024-09-20 09:59 | Outpatient (CLI) | payer MEDICARE, MEDICAID, SELFPAY | END 2024-09-20 10:00 | disposition home or self-care (01) | LOC: WOUND 09:59 | PROVIDERS: PCP Family Medicine; Visit Provider Nurse Practitioner Family | DX: I87.331 Chronic venous hypertension (idiopathic) with ulcer and inflammation of right lower extremity (principal); I73.9 Peripheral vascular disease, unspecified; L97.312 Non-pressure chronic ulcer of right ankle with fat layer exposed | CPT/HCPCS: 11042 ==

== ENCOUNTER 2024-09-27 09:57 | Outpatient (CLI) | payer MEDICARE, MEDICAID, SELFPAY | END 2024-09-27 09:58 | disposition home or self-care (01) | LOC: WOUND 09:57 | PROVIDERS: PCP Family Medicine; Visit Provider Nurse Practitioner Family | DX: I87.331 Chronic venous hypertension (idiopathic) with ulcer and inflammation of right lower extremity (principal); I73.9 Peripheral vascular disease, unspecified; L97.312 Non-pressure chronic ulcer of right ankle with fat layer exposed; F79 Unspecified intellectual disabilities | CPT/HCPCS: 11042 ==

== ENCOUNTER 2024-10-04 09:54 | Outpatient (CLI) | payer MEDICARE, MEDICAID, SELFPAY | END 2024-10-04 09:55 | disposition home or self-care (01) | LOC: WOUND 09:54 | PROVIDERS: PCP Family Medicine; Visit Provider Nurse Practitioner Family | DX: I87.331 Chronic venous hypertension (idiopathic) with ulcer and inflammation of right lower extremity (principal); I73.9 Peripheral vascular disease, unspecified; L97.312 Non-pressure chronic ulcer of right ankle with fat layer exposed | CPT/HCPCS: 11042 ==

== ENCOUNTER 2024-10-11 10:04 | Outpatient (CLI) | payer MEDICARE, MEDICAID, SELFPAY | END 2024-10-11 10:05 | disposition home or self-care (01) | PROVIDERS: PCP Family Medicine; Visit Provider Nurse Practitioner Family | DX: I87.331 Chronic venous hypertension (idiopathic) with ulcer and inflammation of right lower extremity (principal); I73.9 Peripheral vascular disease, unspecified; L97.312 Non-pressure chronic ulcer of right ankle with fat layer exposed | CPT/HCPCS: 15271; Q4101 ==

== ENCOUNTER 2024-10-18 10:06 | Outpatient (CLI) | payer MEDICARE, MEDICAID, SELFPAY | END 2024-10-18 10:07 | disposition home or self-care (01) | LOC: WOUND 10:06 | PROVIDERS: PCP Family Medicine; Visit Provider Nurse Practitioner Family | DX: I87.331 Chronic venous hypertension (idiopathic) with ulcer and inflammation of right lower extremity (principal); I73.9 Peripheral vascular disease, unspecified; L97.312 Non-pressure chronic ulcer of right ankle with fat layer exposed | CPT/HCPCS: G0463 ==

== ENCOUNTER 2024-10-27 14:52 | Outpatient (CLI) | payer MEDICARE, MEDICAID, SELFPAY | END 2024-10-27 14:53 | disposition home or self-care (01) | LOC: WOUND 14:52 | PROVIDERS: PCP Family Medicine; Visit Provider Nurse Practitioner Family | DX: I87.313 Chronic venous hypertension (idiopathic) with ulcer of bilateral lower extremity (principal); I73.9 Peripheral vascular disease, unspecified; L97.322 Non-pressure chronic ulcer of left ankle with fat layer exposed; L97.311 Non-pressure chronic ulcer of right ankle limited to breakdown of skin | CPT/HCPCS: 97597; G0463 ==

== ENCOUNTER 2024-11-01 09:41 | Outpatient (CLI) | payer MEDICARE, MEDICAID, SELFPAY | END 2024-11-01 09:42 | disposition home or self-care (01) | LOC: WOUND 09:41 | PROVIDERS: PCP Family Medicine; Visit Provider Nurse Practitioner Family | DX: I87.312 Chronic venous hypertension (idiopathic) with ulcer of left lower extremity (principal); I73.9 Peripheral vascular disease, unspecified; L97.322 Non-pressure chronic ulcer of left ankle with fat layer exposed; F79 Unspecified intellectual disabilities | CPT/HCPCS: 97597 ==

== ENCOUNTER 2024-11-09 14:13 | Outpatient (CLI) | payer MEDICARE, MEDICAID, SELFPAY | END 2024-11-09 14:14 | disposition home or self-care (01) | LOC: WOUND 14:13 | PROVIDERS: PCP Family Medicine; Visit Provider Nurse Practitioner Family | DX: I87.332 Chronic venous hypertension (idiopathic) with ulcer and inflammation of left lower extremity (principal); I73.9 Peripheral vascular disease, unspecified; L97.322 Non-pressure chronic ulcer of left ankle with fat layer exposed | CPT/HCPCS: 97597 ==

== ENCOUNTER 2024-11-15 10:02 | Outpatient (CLI) | payer MEDICARE, MEDICAID, SELFPAY | END 2024-11-15 10:03 | disposition home or self-care (01) | PROVIDERS: PCP Family Medicine; Visit Provider Family Medicine | DX: I87.312 Chronic venous hypertension (idiopathic) with ulcer of left lower extremity (principal); I73.9 Peripheral vascular disease, unspecified; L97.322 Non-pressure chronic ulcer of left ankle with fat layer exposed | CPT/HCPCS: 11042 ==

== ENCOUNTER 2024-11-22 10:10 | Outpatient (CLI) | payer MEDICARE, MEDICAID, SELFPAY | END 2024-11-22 10:11 | disposition home or self-care (01) | LOC: WOUND 10:10 | PROVIDERS: PCP Family Medicine; Visit Provider Nurse Practitioner Family | DX: I87.312 Chronic venous hypertension (idiopathic) with ulcer of left lower extremity (principal); I73.9 Peripheral vascular disease, unspecified; L97.322 Non-pressure chronic ulcer of left ankle with fat layer exposed | CPT/HCPCS: 97597 ==

== ENCOUNTER 2024-11-27 09:20 | Outpatient (CLI) | payer MEDICARE, MEDICAID, SELFPAY ==
--- NOTE | 2024-11-27 09:15 | CRLHL7_ITS ---
For Patients: As a result of the Century Cures Act, medical imaging exams and procedure reports are released immediately into your electronic medical record. You may view this report before your referring provider. If you have questions, please contact your health care provider. CLINICAL HISTORY: Hydronephrosis COMPARISON: CT 11/07/2020 TECHNIQUE: Lucas scale and color Doppler images were acquired of the kidneys and urinary bladder. FINDINGS: Masslike area left kidney measures 3.5 x 1.7 x 2.2 cm. No hydronephrosis. Renal cortex measures 1 cm on the right and 1.3 cm on the left. The right kidney measures 10.3cm in length and the left kidney measures 9.1cm in length. Catheter is present in the bladder. No suspicious vascularity. IMPRESSION: Masslike area left kidney, indeterminate, measuring 3.5 x 1.[address] renal mass protocol recommended for further evaluation. No hydronephrosis. Dictated by Evgeny Forrester MD @ 11/27/2024 10:37:31 AM (Electronically Signed)
[2024-11-27 10:25] LABS: Estimated Glomerular Filt Rate 65 ml/min
== END 2024-11-27 09:21 | disposition home or self-care (01) ==
LOC: US 09:21
PROVIDERS: PCP Family Medicine; Visit Provider Urology
DX: N13.30 Unspecified hydronephrosis (principal); N28.89 Other specified disorders of kidney and ureter
CPT/HCPCS: 36415; 76770; 80048; 80061; 82565; 83036

== ENCOUNTER 2024-11-29 10:02 | Outpatient (CLI) | payer MEDICARE, MEDICAID, SELFPAY | END 2024-11-29 10:03 | disposition home or self-care (01) | LOC: WOUND 10:02 | PROVIDERS: PCP Family Medicine; Visit Provider Nurse Practitioner Family | DX: I87.331 Chronic venous hypertension (idiopathic) with ulcer and inflammation of right lower extremity (principal); I73.9 Peripheral vascular disease, unspecified; L97.322 Non-pressure chronic ulcer of left ankle with fat layer exposed | CPT/HCPCS: 97597 ==

== ENCOUNTER 2024-12-06 10:01 | Outpatient (CLI) | payer MEDICARE, MEDICAID, SELFPAY | END 2024-12-06 10:02 | disposition home or self-care (01) | LOC: WOUND 10:01 | PROVIDERS: PCP Family Medicine; Visit Provider Nurse Practitioner Family | DX: I87.312 Chronic venous hypertension (idiopathic) with ulcer of left lower extremity (principal); I73.9 Peripheral vascular disease, unspecified; L97.322 Non-pressure chronic ulcer of left ankle with fat layer exposed; F79 Unspecified intellectual disabilities | CPT/HCPCS: 97597 ==

== ENCOUNTER 2024-12-13 09:58 | Outpatient (CLI) | payer MEDICARE, MEDICAID, SELFPAY | END 2024-12-13 09:59 | disposition home or self-care (01) | LOC: WOUND 09:58 | PROVIDERS: PCP Family Medicine; Visit Provider Nurse Practitioner Family | DX: I87.312 Chronic venous hypertension (idiopathic) with ulcer of left lower extremity (principal); I73.9 Peripheral vascular disease, unspecified; L97.321 Non-pressure chronic ulcer of left ankle limited to breakdown of skin; F79 Unspecified intellectual disabilities | CPT/HCPCS: G0463 ==

== ENCOUNTER 2024-12-20 09:59 | Outpatient (CLI) | payer MEDICARE, MEDICAID, SELFPAY | END 2024-12-20 10:00 | disposition home or self-care (01) | LOC: WOUND 09:59 | PROVIDERS: PCP Family Medicine; Visit Provider Nurse Practitioner Family | DX: I87.302 Chronic venous hypertension (idiopathic) without complications of left lower extremity (principal); I73.9 Peripheral vascular disease, unspecified; F79 Unspecified intellectual disabilities | CPT/HCPCS: G0463 ==

== ENCOUNTER 2025-04-05 14:14 | Outpatient (CLI) | payer MEDICARE, MEDICAID, SELFPAY | END 2025-04-05 14:15 | disposition home or self-care (01) | LOC: WOUND 14:15 | PROVIDERS: PCP Family Medicine; Visit Provider Nurse Practitioner Family | DX: I87.331 Chronic venous hypertension (idiopathic) with ulcer and inflammation of right lower extremity (principal); I73.9 Peripheral vascular disease, unspecified; L97.312 Non-pressure chronic ulcer of right ankle with fat layer exposed; F79 Unspecified intellectual disabilities | CPT/HCPCS: 97597; G0463 ==

== ENCOUNTER 2025-04-12 10:58 | Outpatient (CLI) | payer MEDICARE, MEDICAID, SELFPAY | END 2025-04-12 10:59 | disposition home or self-care (01) | LOC: WOUND 10:58 | PROVIDERS: PCP Family Medicine; Visit Provider Nurse Practitioner Family | DX: I87.331 Chronic venous hypertension (idiopathic) with ulcer and inflammation of right lower extremity (principal); I73.9 Peripheral vascular disease, unspecified; L97.312 Non-pressure chronic ulcer of right ankle with fat layer exposed; F79 Unspecified intellectual disabilities | CPT/HCPCS: 11042; 87070; 87186 ==

== ENCOUNTER 2025-04-18 10:32 | Outpatient (CLI) | payer MEDICARE, MEDICAID, SELFPAY | END 2025-04-18 10:33 | disposition home or self-care (01) | LOC: WOUND 10:33 | PROVIDERS: PCP Family Medicine; Visit Provider Nurse Practitioner Family | DX: I87.331 Chronic venous hypertension (idiopathic) with ulcer and inflammation of right lower extremity (principal); I73.9 Peripheral vascular disease, unspecified; L97.312 Non-pressure chronic ulcer of right ankle with fat layer exposed; F79 Unspecified intellectual disabilities | CPT/HCPCS: 11042 ==

== ENCOUNTER 2025-04-25 15:42 | Outpatient (CLI) | payer MEDICARE, MEDICAID, SELFPAY | END 2025-04-25 15:43 | disposition home or self-care (01) | LOC: WOUND 15:42 | PROVIDERS: PCP Family Medicine; Visit Provider Surgery | DX: I87.331 Chronic venous hypertension (idiopathic) with ulcer and inflammation of right lower extremity (principal); I73.9 Peripheral vascular disease, unspecified; L97.312 Non-pressure chronic ulcer of right ankle with fat layer exposed; F79 Unspecified intellectual disabilities | CPT/HCPCS: G0463 ==

== ENCOUNTER 2025-05-02 10:30 | Outpatient (CLI) | payer MEDICARE, MEDICAID, SELFPAY | END 2025-05-02 10:31 | disposition home or self-care (01) | LOC: WOUND 10:30 | PROVIDERS: PCP Family Medicine; Visit Provider Nurse Practitioner Family | DX: I87.331 Chronic venous hypertension (idiopathic) with ulcer and inflammation of right lower extremity (principal); I73.9 Peripheral vascular disease, unspecified; L97.312 Non-pressure chronic ulcer of right ankle with fat layer exposed; F79 Unspecified intellectual disabilities | CPT/HCPCS: 11042 ==

== ENCOUNTER 2025-05-09 10:27 | Outpatient (CLI) | payer MEDICARE, MEDICAID, SELFPAY | END 2025-05-09 10:28 | disposition home or self-care (01) | LOC: WOUND 10:27 | PROVIDERS: PCP Family Medicine; Visit Provider Nurse Practitioner Family | DX: I87.331 Chronic venous hypertension (idiopathic) with ulcer and inflammation of right lower extremity (principal); I73.9 Peripheral vascular disease, unspecified; L97.812 Non-pressure chronic ulcer of other part of right lower leg with fat layer exposed; F79 Unspecified intellectual disabilities | CPT/HCPCS: 11042; G0463 ==

== ENCOUNTER 2025-05-16 10:26 | Outpatient (CLI) | payer MEDICARE, MEDICAID, SELFPAY | END 2025-05-16 10:27 | disposition home or self-care (01) | LOC: WOUND 10:26 | PROVIDERS: PCP Family Medicine; Visit Provider Nurse Practitioner Family | DX: I87.331 Chronic venous hypertension (idiopathic) with ulcer and inflammation of right lower extremity (principal); I73.9 Peripheral vascular disease, unspecified; L97.812 Non-pressure chronic ulcer of other part of right lower leg with fat layer exposed; F79 Unspecified intellectual disabilities | CPT/HCPCS: 11042 ==

== ENCOUNTER 2025-05-23 10:29 | Outpatient (CLI) | payer MEDICARE, MEDICAID, SELFPAY | END 2025-05-23 10:30 | disposition home or self-care (01) | LOC: WOUND 10:29 | PROVIDERS: PCP Family Medicine; Visit Provider Nurse Practitioner Family | DX: I87.312 Chronic venous hypertension (idiopathic) with ulcer of left lower extremity (principal); I73.9 Peripheral vascular disease, unspecified; L97.811 Non-pressure chronic ulcer of other part of right lower leg limited to breakdown of skin; F79 Unspecified intellectual disabilities | CPT/HCPCS: G0463 ==

== ENCOUNTER 2025-05-30 10:38 | Outpatient (CLI) | payer MEDICARE, MEDICAID, SELFPAY | END 2025-05-30 10:39 | disposition home or self-care (01) | LOC: WOUND 10:38 | PROVIDERS: PCP Family Medicine; Visit Provider Nurse Practitioner Family | DX: I87.312 Chronic venous hypertension (idiopathic) with ulcer of left lower extremity (principal); I73.9 Peripheral vascular disease, unspecified; L97.811 Non-pressure chronic ulcer of other part of right lower leg limited to breakdown of skin; F79 Unspecified intellectual disabilities | CPT/HCPCS: G0463 ==

== ENCOUNTER 2025-08-16 19:29 | Emergency (ER) | payer MEDICARE, MEDICAID, SELFPAY ==
--- OUTSIDE RECORDS SUMMARY | 2025-08-16 19:31 | XMS_ITS | Data Portability ---
Author Organization [place] [facility] [place] [facility] Address [address] [place] [address] [address] [place] [address] Assessment No assessment recorded. Plan of Treatment Reminders Order DateSubmit DateProviderLast Modified ByOrganization DetailsLast Modified TimeDetailsAppointmentsNone recorded.Labcreatinine, serum or quhnwa0702/13/2025 02/13/2025[facility], [address] [place], [address], 07/08/2024 11:24:38ReferralNone recorded.Procedures cystourethroscopy, with injections for chemodenervation of the bladder (PROC) /hkharelNot ahayqmush01/26/2025 09:24:29SurgeriesNone recorded.ImagingUS, /[id number] hghwvejdq93/24/2025 11:45:38Medication OrdersNone recorded. Patient TargetsNo targets recorded. Patient Instructions Encounter Date Encounter Id Patient Instructions Last Modified By Organization Details Last Modified Time 04/20/2025 [id number] Telephone - 8 minutes [email or web address] Not available 04/20/2025 12:22:48 Reason for Referral None Reported. Results Created Date Observation Date Name Description Value Unit Range Abnormal Flag Note LastModifiedBy Organization Detail LastModifiedTime 02/17/2024 02/17/2024 [facility] [address] [facility], [place], [address], 07/09/2023 15:31:01 /27/2024US, renalNo observation recorded.fgdjdik2[facility] [address], [place], [address], 07/02/2024 18:36:03 /4CT, urogramNo observation recorded.[facility] [address], [place], [address], 01/ 15:30:30 US, renalNo observation recorded.[address] [place], [address], 9912/13/2024 14:18:14 US, kidneyNo observation recorded.[address] Radiology Department [address] [place], [address], Ph [phone] 12:24:36 5CT, abdomen, w/wo contrastNo observation recorded.[address] [facility] [address], [place], [address], Ph [phone] 13:23:02 Result Notes None recorded. Medical Equipment None Reported. Allergies Allergen ID Allergen Name Allergen Category Reaction Reaction Severity Criticality Documentation Date Start Date Code Code System Note Provider Name and Address Organization Details Recorded Time 889057 Substance with sulfo namide structure and antibacterial mechanism of action (substance) medication Not avai lable Not available Not wyfzaytng57/08/1342149850072AICDUGFto Kris glasgow [facility] Lkncnbl9202/28/2024 10:52:26 Medications Name Sig Start Date Stop Date Status Note LastModified by Organization Details LastModified Time fluoxetine 40 mg capsule Take 1 capsule every da y by oral route. activeNot AvailableNot AvailableNot Availablecetirizine 10 mg tabletTake 1 tablet every day by oral route.activeNot AvailableNot AvailableNot Available Debrox 6.5 % ear dropsINSTILL 5 DROPS INTO AFFECTED EAR(S) BY OTIC ROUTE 2 TIMES PER DAYactiveNot AvailableNot AvailableNot AvailableGas Relief (simethicone) 125 mg capsuleTake by oral route.activeNot AvailableNot AvailableNot Available cranberryactiveNot AvailableNot AvailableNot AvailableoxybutyninactiveNot AvailableNot AvailableNot AvailableFiber (calcium polycarbophil) 625 mg tablet Take by oral route.activeNot AvailableNot AvailableNot Availabletetrabenazine 12.5 mg tabletTake 1 tablet 3 times a day by oral route.activeNot AvailableNot AvailableNot Availableloratadine 10 mg capsuleTake by oral route.02/13/2025 completedNot AvailableNot AvailableNot KzkogbjuuYro-A-Tydy Multivitamin w-iron activeNot AvailableNot AvailableNot Available Vitals Date Recorded Body height Body mass index (BMI) Body weight Provider Name and Address Organization Details Last Updated DateTime 02/13/2025 144.78 cm 23.8 kg/m2 81394.16 g Indu Nair [facility] 02/13/2025 10:54:51 Date Recorded Body weight Body mass index (BMI) Body height Provider Name and Address Organization Details Last Updated DateTime 02/28/2024 81499.16 g 23.8 kg/m2 144.78 cm Saba Ponce [facility] 02/28/2024 10:52:05 Date Recorded Body height Body mass index (BMI) Body weight Provider Name and Address Organization Details Last Updated DateTime 04/20/2025 144.78 cm 23.8 kg/m2 21778.16 g Yesy salgado [facility] 04/20/2025 12:07:37 Social History Question Answer Notes LastModified by Organization D etails LastModified Time Tobacco Smoking Status Never Smoker Saba glasgow [facility] Buznaab7302/28/2024 10:55:27What Is Your Level Of Caffeine Consumption?OccasionalaronningenInformation not lpeivnipk26/08/2024What Was The Date Of Your Most Recent Tobacco Screening?02/13/20257555ongtslpbux96Snewgjoleok not laohxlccb32/24/2025 Sex: Unknown Functional Status Question Answer Note LastModified by Organization D etails LastModified Time What is your level of alcohol consumption? None aronningenInformation not /08/2024 Mental Status None recorded. Family History Nothing Reported. Medical History No medical history recorded. Gynecological HistoryNo gynecological history recorded. Obstetrics History GPAL:G 0 P 0 0 0 0 Immunizations Vaccine Type Date Status Note Provider Nam e and Address Organization Details Recorded Time Influenza, split virus, quadrivalent, preservative completed Saba glasgow, [facility]02/28/2024 10:52:09Influenza, split virus, quadrivalent, nfggaotbuaie33/26/2021[facility], [facility]02/28/2024 10:52:09Influenza, split virus, quadrivalent, npafylpvcjvh28/11/2019completedAva Kris [facility], [facility]02/28/2024 10:52:09Influenza, MDCK, quadrivalent, pbkyedmudxhr74/22/2018completedAva Kris [facility], [facility]02/28/2024 10:52:09zoster xhudnzdjily82/04/2021ompleted Saba glasgow, [facility]02/28/2024 10:52:09zoster fvobvzolrmy42/16/2021ompleted Saba Ponce [facility], [facility]02/28/2024 10:52:09COVID-19, mRNA, LNP-S, PF, 100 mcg/0.5mL dose or 50 mcg/0.25mL dose09/18/2020[facility]02/28/2024 10:52:09COVID-19, mRNA, LNP-S, PF, 100 mcg/0.5mL dose or 50 mcg/0.25mL dose10/15/2020ompSabeth[facility] Hospitalradha Ponce [facility], [facility]02/28/2024 10:52:09COVID-19, mRNA, LNP-S, PF, 100 mcg/0.5mL dose or 50 mcg/0.25mL dose10/22/2020omp[facility] centerdAradha Ponce [facility], [facility]02/28/2024 10:52:09COVID-19, mRNA, LNP-S, PF, 100 mcg/0.5mL dose or 50 mcg/0.25mL dose03/16/2022ompAt[facility] Baldwinalmas null, [facility]02/28/2024 10:52:09COVID-19, mRNA, LNP-S, PF, 100 mcg/0.5mL dose or 50 mcg/0.25mL dose07/10/2021omp[facility] Kris [facility], [facility]02/28/2024 10:52:09COVID-19, mRNA, LNP-S, PF, 50 mcg/0.5 mL06/09/2023ompAt[facility]ic[facility] Baldwinalmaskaiser [facility], [facility]02/28/2024 10:52:16wheypwn53/26/1970[facility], [facility]02/28/2024 10:52:09influenza, unspecified formulation 05/23/2018[facility], [facility]02/28/2024 10:52:13Rwuv6208/31/2008comEm[facility] Hospitalalmask[facility], [facility]02/28/2024 10:52:09Novel Nbzdmucuw-V7G5-38, all qtozerhudlee51/18/2010com[facility], [facility]02/28/2024 10:52:09Influenza, split virus, trivalent, vydnbwahkrtw24/28/2016[facility], [facility]02/28/2024 10:52:10Td (adult), 2 Lf tetanus toxoid, preservative free, rbjzjaox04/08/2019[facility], [facility]02/28/2024 10:52:10Influenza, split virus, quadrivalent, PF06/09/2023omp[facility] centerdAva [facility] null, [facility]02/28/2024 10:52:10Influenza, split virus, quadrivalent, PF06/15/2017comthe [facility] instituteedA[facility] null, [facility]02/28/2024 10:52:10Influenza, split virus, quadrivalent, PF06/17/2022[facility] centerdAva [facility]re[facility] null, [facility]02/28/2024 10:52:10 Past Encounters Encounter ID Performer Location Encounter Start Date Encounter Closed Date Diagnosis/Indication Diagnosis SNOMED-CT Code Diagnosis ICD10 Code Diagnosis IMO Codes Diagnosis Note [id number] Ezequiel Underwood MD [facility] [address] [place] [address] 02/28/2024 10:43:20 03/02/2024 09:57:22 Neurogenic urinary bladder 470444775 N31.9 1. Neurogenic bladder- continue Oxybutynin ER 20 mg daily- continue S-P catheter (22 Fr galvan catheter)- change S-P catheter every 4 weeks(if catheter is becoming obstructed - the catheter can be irrigated with sterile water or saline - (30-50 mL in and out with catheter-tipped syringe) repeated for 200 mL total)- can irrigate catheter prn jyliqGfugrvvvpwxbiv61502492R06.30 2. Left hydronephrosis- reviewed Renal U/S (02/17/24) - Left - severe hydronephrosis - Right - no hydronephrosis(prior imaging suggested Left UPJ obstruction)- slight decrease in renal function (Cr - 0.84 to 0.91)- discussed the imaging and lab finding and patient's guardian (Elda Cali - cell [phone])- options: observe / monitor renal function - check CT scan - check Lasix Renal scan - consider surgical repair- Plan - check CT scan (will need IV sedation of scan) at [place]- will reassess after CT [id number] Fadden, MD [facility] [address] [place] [address] 02/13/2025 10:03:42002/14/2025 13:40:41Neurogenic urinary ilnhvid109338674K65.9 1. Neurogenic bladder- continue Oxybutynin ER 20 mg daily- continue S-P catheter (22 Fr galvan catheter)- change S-P catheter every 3 weeks (has occlusion from sediment)(if catheter is becoming obstructed - the catheter can be irrigated with sterile water or saline - (30-50 mL in and out with catheter-tipped syringe) repeated for 200 mL total)- can irrigate catheter prn daily [id number] 2. Left hydronephrosis- Renal U/S (02/17/24) - Left - severe hydronephrosis - Right - no hydronephrosis(prior imaging suggested Left UPJ obstruction)- reviewed CT Urogram (01/19/25) images - no renal masses or stones - + Bilateral renal scarring - Right - no hydronephrosis - Left - moderate hydronephrosis (? UPJ obstruction)- Renal function - Cr - 0.89 - stable (Cr - 0.84 to 0.91)- discussed the imaging and lab finding and patient's guardian (Elda Karely - cell [phone])- observe- Follow-up in 1 year with Renal U/S and Creatinine [id number] [facility]ales[facility]ett [address] [place] [address] 04/20/2025 12:07:23004/28/2025 03:58:14Neurogenic urinary btdildw373672550F89.9 1. Neurogenic bladder- having more leakage around catheter- continue Oxybutynin ER 20 mg daily- continue S-P catheter (22 Fr galvan catheter)- change S-P catheter every 3 weeks (has occlusion from sediment)(if catheter is becoming obstructed - the catheter can be irrigated with sterile water or saline - (30-50 mL in and out with catheter-tipped syringe) repeated for 200 mL total)- can irrigate catheter prn daily- discussed trying Cystoscopy with Bladder Botox injection (100 units) - will need deep MAC or general anesthesia- will need catheter change and checking UCx (7-10 days before the procedure) - likely has bacteriapresent (will need to be on antibiotics prior to procedure) [id number] 2. Left hydronephrosis- Renal U/S (02/17/24) - Left - severe hydronephrosis - Right - no hydronephrosis(prior imaging suggested Left UPJ obstruction)- reviewed CT Urogram (01/19/25) images - no renal masses or stones - + Bilateral renal scarring - Right - no hydronephrosis - Left - moderate hydronephrosis (? UPJ obstruction)- Renal function - Cr - 0.89 - stable (Cr - 0.84 to 0.91)- discussed the imaging and lab finding and patient's guardian (Elda Cali - cell [phone])- observe- Follow-up in 1 year with Renal U/S and Creatinine Health Concerns Section Related Observation LastModified by Organization Detai ls LastModified Time None Recorded Concern Status LastModified by Organization Details LastModified Time None Recorded Advance Directives Directive None Recorded Payers Insurance Date Sequence Insurance Name Policy Number Policy Recinos Covered Member ID Recinos Member ID Guarantor Name 06/29/2025 2 [place] Cecil Lanier [id number] [employer] Owenbob Lanier [id number] J Schreckenberg Notes Date Note Type Note Provider Name and Address Orga nization Details Recorded Time 02/28/2024 text/html 58 yo female with H/O mental retardation and neurogenic bladder - S-P catheter placed by Dr. Xie 2005. Cystoscopy 02/04/[address] Wadsworth - bx revealed cystitis (no cancer). Last Cystoscopy (10/24/18) revealed no tumors in bladder. Renal U/S (October 2018) revealed mild Left hydronephrosis.She is on Oxybutynin ER 20 mg daily for bladder spasms. Her catheter (22 Fr) is changed every 4 weeks. 12/22/21 - She presents for follow-up on her neurogenic bladder. Her S-P catheter could not be changed last week (resistance). No hematuria or incontinence. No H/O flank pain. 02/28/24 - She presents for follow-up on neurogenic bladder and worsening Left hydronephrosis. She was treated for UTI in September. She denies flank pain. Appetite is good. Renal U/S (10/24/18) - Left kidney - lobulated contour - probable mild hydronephrosis - Right kidney - normal.Renal U/S (01/27/19) - Left kidney - stable moderate hydronephrosis - Right kidney - normal Renal U/S (02/17/24) - Left - severe hydronephrosis - Right - no hydronephrosis- Bladder - decompressed Cr - 0.84 (02/07/20)- 0.91 (02/22/24) UCx (11/11/23) - Klebsiella and PseudomonasEzequiel Underwood MD [address] [facility],[address], [place], [address], [place] Lvkdssh4203/01/2024 18:05:text/html 59 yo female with H/O mental retardation and neurogenic bladder - S-P catheter placed by Dr. Xie 2005. Cystoscopy 02/04/[address] Wadsworth - bx revealed cystitis (no cancer). Last Cystoscopy (10/24/18) revealed no tumors in bladder. Renal U/S (October 2018) revealed mild Left hydronephrosis.She is on Oxybutynin ER 20 mg daily for bladder spasms. Her catheter (22 Fr) is changed every 4 weeks. 12/22/21 - She presents for follow-up on her neurogenic bladder. Her S-P catheter could not be changed last week (resistance). No hematuria or incontinence. No H/O flank pain. 02/28/24 - She presents for follow-up on neurogenic bladder and worsening Left hydronephrosis. She was treated for UTI in September. She denies flank pain. Appetite is good. 02/13/25 - She presents for follow-up on neurogenic bladder and Left hydronephrosis. She denies flank pain. Her S-P catheter becomes occluded from sediment at [address] Urogram (01/19/25) - no renal masses or stones - + Bilateral renal scarring - Right - no hydronephrosis - Left - moderate hydronephrosis (? UPJ obstruction)- Cr - 0.89 (01/10/25) Renal U/S (10/24/18) - Left kidney - lobulated contour - probable mild hydronephrosis - Right kidney - normal.Renal U/S (01/27/19) - Left kidney - stable moderate hydronephrosis - Right kidney - normal Renal U/S (02/17/24) - Left - severe hydronephrosis - Right - no hydronephrosis- Bladder - decompressed CT Urogram (03/23/24) - no stones or renal masses - + Bilateral cortical scarring - + hydronephrosis (L > R) - right ureter appears to be dilated to bladderCT Urogram (01/19/25) - no renal masses or stones - + Bilateral renal scarring - Right - no hydronephrosis - Left - moderate hydronephrosis (? UPJ obstruction) Cr - 0.84 (02/07/20)- 0.91 (02/22/24)- 0.89 (01/10/25) UCx (11/11/23) - Klebsiella and PseudomonasJenna Joanie glasgow [place] Siuxcio5902/13/2025 11:22:49004/20/2025text/html 59 yo female with H/O mental retardation and neurogenic bladder - S-P catheter placed by Dr. Xie 2005. Cystoscopy 02/04/[address] Wadsworth - bx revealed cystitis (no cancer). Last Cystoscopy (10/24/18) revealed no tumors in bladder. Renal U/S (October 2018) revealed mild Left hydronephrosis.She is on Oxybutynin ER 20 mg daily for bladder spasms. Her catheter (22 Fr) is changed every 4 weeks. 12/22/21 - She presents for follow-up on her neurogenic bladder. Her S-P catheter could not be changed last week (resistance). No hematuria or incontinence. No H/O flank pain. 02/28/24 - She presents for follow-up on neurogenic bladder and worsening Left hydronephrosis. She was treated for UTI in September. She denies flank pain. Appetite is good. 02/13/25 - She presents for follow-up on neurogenic bladder and Left hydronephrosis. She denies flank pain. Her S-P catheter becomes occluded from sediment at 3 weeks. 04/20/25 - She presents for follow-up on neurogenic bladder / possible Bladder Botox. She is having more urine leakage around galvan catheter. She has been banging her head against things more frequently. I talked her guardian / sister (Elda Cali - [phone]) Renal U/S (10/24/18) - Left kidney - lobulated contour - probable mild hydronephrosis - Right kidney - normal.Renal U/S (01/27/19) - Left kidney - stable moderate hydronephrosis - Right kidney - normal Renal U/S (02/17/24) - Left - severe hydronephrosis - Right - no hydronephrosis- Bladder - decompressed CT Urogram (03/23/24) - no stones or renal masses - + Bilateral cortical scarring - + hydronephrosis (L > R) - right ureter appears to be dilated to bladderCT Urogram (01/19/25) - no renal masses or stones - + Bilateral renal scarring - Right - no hydronephrosis - Left - moderate hydronephrosis (? UPJ obstruction) Cr - 0.84 (02/07/20)- 0.91 (02/22/24)- 0.89 (01/10/25) UCx (11/11/23) - Klebsiella and Pseudomonas Current patient location: [place] Current MD/DIANE location: [place] HIPAA compliant platform used: yes Prior to conducting our telephone visit, the patient was apprised of the risks, benefits and alternatives to telephone visits including but not limited to poor audio quality, interrupted visits due to technological limitations, delays in medical evaluation and treatment due to deficiencies or failures of equipment, failure of security protocols resulting in a breach of privacy of personal medicalinformation and a lack of access to complete medical records resulting in not fully informed. It was not possible for the patient to sign the privacy regulations, HIPAA release and assignment of benefits forms. The patient was given the opportunity to ask questions about these policies and gave verbal acknowledgement and approval of these policies as well as to hold this meeting by telephone. Lastly, the patient agreed to allowing their medication history to be pulled from a national pharmacy database to facilitate and coordinate their care.Ezequiel Underwood MD [address] [place] [address],[address], [place], [address], [facility] Mckwhmo0004/20/2025 12:27:39 OBGyn Episode No OBEpisode recorded.
--- OUTSIDE RECORDS SUMMARY | 2025-08-16 19:31 | XMS_ITS | Clinical Summary ---
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 Role Phone Devaughn Wadsworth MD Unavailable [phone] Lachelle Schilling DO Primary Care Provider [phone] Allergies Active AllergyReactionsCriticalityNoted DateCommentsSulfa (Sulfonamide Antibiotics)Rash Medications MedicationSigDispense QuantityRefillsLast FilledStart DateEnd DateStatus DME Indications:Neurogenic bladder, [id number] bard silastic galvan catheter Ref # [id number] RN to change SPTube every 1 month-10cc sterile water in balloon 1 Each ctive Transparent Dressings (Tegaderm) 2 X 2 3/4 bndg Indications:Lower limb ulcer, ankle, right, with unspecified severity (HC)Apply topically to affected area(s). 50 Each 11/06/2020ctive calcium carbonate (Tums) 200 mg calcium (500 mg) chewable tablet Indications:Gastric acidityChew 1 Tablet (500 mg) by mouth 3 times daily if needed for Heartburn.ctive benzonatate (TESSALON) 100 mg capsule Indications:CoughTake 1 Capsule (100 mg) by mouth 3 times daily if needed for Cough. 40 Capsule ctive Tetrabenazine 12.5 mg tab 05/18/2022ctive Starch, Thickening, (Thick-It #2) pwpk Indications:Dysphagia, unspecified typeMix 1 Packet in liquid then take by mouth three times daily with meals. 90 Packet 106/22/2023Active Non-Adherent Bandage (Telfa) 2 X 3 bndg Indications:Wound of right lower extremity, initial encounterApply topically to affected area(s). 10 Each ctive carbamide peroxide (DEBROX) 6.5 % otic solution Indications:Impacted cerumen of left earUse once weekly. 3-5 drops each ear. 15 mL 08/05/2023ctive NaCl 0.9% irrigation solution Indications:Neurogenic bladderIrrigate 250 mL to affected area each time if needed (with catheter changes). IRRIGATE CATHETER WITH 250 MLS NEEDED AND WITH CATHETER CHANGES 1000 mL ctive medication order composer Indications:Neurogenic bladderDispense leg bag and drainage system and catheter insertion kit/tray 22F 10 cc balloon and gloves 3 Kit ctive Urinary Bag misc Indications:Neurogenic bladderAs directed. 4 Each ctive Cranberry 500 mg cap Indications:Neurogenic bladderTake 1 Capsule (500 mg) by mouth once daily. 90 Capsule ctive LORazepam 2 mg tablet Indications:AnxietyTAKE ONE TABLET BY MOUTH 1 HOUR BEFORE PROCEDURES OR DENTAL WORK OR FOR MEDICAL APPOINTMENTS NEEDED 6 Tablet ctive FLUoxetine (PROZAC) 40 mg capsule Indications:Obsessive-compulsive disorder, unspecified typeTake 1 Capsule (40 mg) by mouth once daily. 90 Capsule 5Active oxybutynin XL (DITROPAN XL) 10 mg CR tablet Indications:Neurogenic bladderTake 2 Tablets (20 mg) by mouth once daily. 180 Tablet 5Active Simethicone (Gas Relief Extra Strength) 125 mg chewable tablet Indications:FlatulenceChew 1 Tablet (125 mg) by mouth three times daily. Max dose: 500 mg per 24 hrs 270 Tablet 5Active food supplemt, lactose-reduced (Ensure) Indications:Well adult exam,Mild malnutrition (HC)1 bottle daily by mouth 3792 mL 1005Active loratadine 10 mg tablet Indications:Chronic rhinitisTAKE ONE TABLET BY MOUTH EVERY DAY FOR ANTIHISTAMINE 90 Tablet 5Active cetirizine 10 mg tablet Indications:Seasonal allergiesTake 1 Tablet (10 mg) by mouth once daily. 30 Tablet 1105/2025Active multivitamin with folic acid 0.4 mg (Daily-Kathya (with folic acid)) Indications:Chronic diarrheaTAKE 1 TABLET BY MOUTH ONCE DAILY 90 Tablet 5Active calcium polycarbophiL (Fiber-Lax) 625 mg tablet Indications:Chronic diarrheaTAKE 1 TABLET BY MOUTH ONCE DAILY 90 Tablet 5Active triamcinolone (ARISTOCORT; KENALOG) 0.1 % cream Indications:Eczema, unspecified typeAPPLY TOPICALLY TWICE DAILY NEEDED 80 g 1105Active Diaper,Brief, Adult,Disposable Indications:Chronic diarrhea,Neurogenic bladderFor home use. 80 Each 5Active acetaminophen (TYLENOL EXTRA STRGTH) 500 mg tablet Indications:Neurogenic bladderTake 1 Tablet (500 mg) by mouth three times daily. Max acetaminophen dose: 4000mg in 24 hrs. 270 Tablet 5Active trimethoprim-polymyxin b (POLYTRIM) ophthalmic solution Indications:Viral conjunctivitisPlace 1 Drop into right eye every 4 hours. 10 mL 5Active Active Problems ProblemNoted DateDiagnosed DateProfound developmental delay08/06/2025Lives in group home5Chronic suprapubic axqtuqhm37/12/2025Pelvicaliectasis 03/15/2024Varicose veins of right lower extremity with ulcer of ankle (CODE) 4Acne ijbzddz98/23/9621Tcehgkpstu10/14/2022Varicose veins of both lower lrcsfirkupm16/04/2021Obsessive-compulsive /22/2020Chronic diarrhea 12/13/2019Hydronephrosis of left oqgjjb7506/12/2019Movement kxihkweh18/12/2018 Multiple lacunar gfsibcim31/12/2018 Overview (02/01/2018): On MRI from 08/2017 Controlled substance agreement hcucig8204/01/2017 Overview (04/01/2017): Signed 04/01/2017 Dr Barb Frias Psychiatry MENTAL BGMWMVTNIQI91/16/0880Bqytnef03/12/1851Wsuuir54/16/2010Head banging 09/03/2009Habitual self-kdpmcksoleq15/18/2009 Overview (04/09/2009): per medical appointment form Other disorders of iron zygyjhyorv21/21/2007 Overview (05/23/2010): brother has hemochromatosis Inactive ICD-9 code replaced with correct active ICD-9. Display name retained. Unspecified intellectual disabilities Overview (11/24/2006): moderate to severe Neurogenic bladder, NOS Overview (11/24/2006): supra pubic catheter Raynaud's syndromeChronic rhinitis Resolved Problems ProblemNoted DateDiagnosed DateResolved DateStasis ulcer of right ankle resence of suprapubic ayxilffc12 Overview (04/09/2009): Per medical appointment form Encounters DateTypeDepartmentCare VkxrWdmxkdvnxxk90/15/2025 10:10 AM CSTOffice Visit [facility] [address] [place] [address] Yeimy Schilling DO Eye Problem (notice 3-4 days ago. This morning really caked together green to yellowish color.)08/06/2025Telephone [facility] [address] [place] [address] Yeimy Schilling DO Medication Qiokincolv80/15/0169Gfbfmz96/25/2025 11:07 AM CDTAnesthesia Event [facility] [address] [place] [address] Jovanny Yuen MD 05/17/2025 9:59 AM CDT - 05/17/2025 11:09 AM CDTSurgery [facility] [address] [place] [address] Ezequiel Underwood MD cystoscopy, bladder botox 100 units05/17/2025 8:10 AM CDT - 05/17/2025 12:44 PM CDTHospital Encounter [facility] [address] [place] [address] Ezequiel Underwood MD Discharge Disposition: Home Self Care05/17/2025Travelfrom Last 3 Months Immunizations ImmunizationAdministration DatesNext DueCOVID-19 vaccine (Moderna 100mcg/0.5mL) PF, MDV109/09/2020,11/12/2020,10/22/2020,10/15/2020Influenza A (H1N1), Wgutvxuxogb65/18/2010Influenza Virus, Gjpohbytplg31/01/2018Influenza, IIV3 (Age >=3 years)06/17/2021,06/19/2016Influenza, PAS966,06/17/2022,07/06/2019, 06/15/2017,06/18/2016Influenza, IIV4 (=>6mos) MDV1,06/05/2020, 07/03/2019Influenza,CCIIV4 PRESERV FREE06/13/20187891Axrqwxi10/26/1970Td (Age >=7 Years)12/28/2018,02/04/1999Tdap08/31/2008Zoster (Shingrix-RZV, recombinant) 03/07/2021,10/24/2020,10/24/2020 Family History Medical HistoryRelationNameCommentsDiabetesMotherRelationNameStatusComments Mother Social History Tobacco UseTypesPacks/DayYears UsedDateSmoking Tobacco: HfxtgxNnxlxrdlhe5Pzfc: 05/11/1998Smokeless Tobacco: Never Tobacco Cessation:Counseling Given: No Comments:Used to smooch cigarettes from staff, not a regular smoker, noted 09/26/2018 Alcohol UseStandard Drinks/WeekCommentsNo0 (1 standard drink = 0.6 oz pure alcohol)PHQ-2AnswerDate RecordedPHQ-2 TOTAL IAXDF419Social Connections AnswerDate RecordedDo you often feel lonely or isolated from those around you?0 05/09/2025lcohol UseAnswerDate RecordedHow often do you have a drink containing alcohol?How many drinks containing alcohol do you have on a typical day when you are drinking?How often do you have five or more drinks on one occasion?Financial Resource StrainAnswerDate Recorded Difficulty of Paying Living Huhasbxa188/17/2025Difficulty of Paying Living ExpensesNot on file05/09/2025Food InsecurityAnswerDate RecordedDo you worry your food will run out before you are able to buy more?Transportation NeedsAnswerDate RecordedDoes lack of transportation keep you from medical appointments?Does lack of transportation keep you from work, meetings or getting things that you need?Housing StabilityAnswerDate Recorded What is your housing situation today?UtilitiesAnswerDate RecordedDo you have trouble paying for utilities (for example, heat, electricity, water, phone)?CommentsNoSex and Gender InformationValueDate Recorded Sex Assigned at BirthNot on fileLegal UfvJkrwaj71/14/2013 5:25 AM CSTGender IdentityNot on fileSexual OrientationNot on file Obstetrics History GravidaParaTermPretermABIABSABEctopicMultipleLivingLive [id number] Last Filed Vital Signs Vital SignReadingTime TakenCommentsBlood Xokfipvk975/6320505/17/2025 12:30 PM CDT Fvwry9533/25/2025 12:30 PM VJNOuyvmkztozx89 ??C (96.8 ??F)05/17/2025 12:00 PM CDTRespiratory Xmyi825805/17/2025 12:30 PM CDTOxygen Wdtexwmirp08%05/17/2025 12:30 PM CDTInhaled Oxygen Concentration--Fobtyt52.4 kg (120 lb)05/17/2025 8:51 AM CDT Ofdxqd677.3 cm (4' 10)05/17/2025 8:51 AM CDTBody Mass Index25.0805/17/2025 8:51 AM CDT Plan of Treatment DateTypeDepartmentCare Team (Latest Contact Info)Ybetmgfuqqg26/16/2026 9:20 AM CDTOffice Visit [facility] [place] [address] Tonie Lachelle Sosa, DO [address] [place] [address] Health MaintenanceDue DateLast DoneCommentsHIV for age 15-Hepatitis B series for 19+ (1 of 3 - 19+ 3-dose series)1984Colonoscopy through age Mammogram for age 40-Pneumococcal series for age 50+ (1 of 1 - PCV)12/12/2015RSV vaccine for adults or (1 - Risk 50-74 years 1-dose series)12/12/2015COVID-19 vaccine series (2024- season) , 03/16/2022, 07/10/2021, Additional history existsInfluenza Vaccine (#1)/, 06/17/2022, 06/17/2021, Additional history existsBMI (ht and wt on same day) for age 18+6001/08/2025, 04/01/2021, 10/21/2020, Additional history existsTetanus /03/2019, 08/31/2008, 02/04/1999Lipids for age 45-750, 10/28/2022, 09/24/2016, Additional history existsZoster (shingles) series for age 50+ Bcautwxpf72/16/2021, 10/24/2020, 10/24/2020Hepatitis C screening for age 18-79 Eqheyciok49/08/2023Pap test for age 21-65Discontinued Procedures Procedure NamePriorityDate/TimeAssociated DiagnosisCommentsPATH TISSUE EXAMToday 05/17/2025 11:40 AM CDT SUPRAGLOTTIC-QHTNrijvhz41/25/2025 11:15 AM CDT BIOPSY BLADDERTier 2: within 30 days05/17/2025 10:48 AM CDT N31.9 Neuromuscular dysfunction of bladder, unspecified CYSTOSCOPY INJECTION BOTOXTier 2: within 30 days05/17/2025 10:48 AM CDT N31.9 Neuromuscular dysfunction of bladder, unspecified LIPID PANEL W REFLEX MEASURED OQUZajnyhl19/21/2025 3:21 PM CDT Screening cholesterol level LC HCV ANTIBODY RFX TO QUANT CCKNkeotgv45/08/2023 8:50 AM MANAGER FIELD Need for hepatitis C screening test from Last 3 Months or Most Recently Relevant to Health Maintenance Results * PATH TISSUE EXAM (05/17/2025 11:40 AM CDT)ComponentValueRef RangeTest Method Analysis TimePerformed AtPathologist SignatureCase ReportPathology Report ?Case: [id number] ? Authorizing Provider: ??Ezequiel Underwood MD ?Collected: ? 05/17/2025 1140 ? Ordering Location: ? [facility] ?Received: ?05/17/2025 1158 ? Hospital ? Pathologist: ? Ky De La Fuente MD ? Specimen: ?Bladder Biopsy, posterior wall bladder biopsy ? 05/18/2025 3:28 PM [facility] Diagnosis A) URINARY BLADDER, POSTERIOR WALL, BIOPSY: 1. Polypoid cystitis with squamous metaplasia 2. Sampling includes: Urothelium, lamina propria 3. Negative for papillary tumor and malignancy 05/18/2025 3:28 PM [facility] at 1528 CDTClinical Information Neurogenic bladder/overactive bladder with incontinence, bladder lesion. Per operative findings: There was an 8 mm polypoid lesion on the lower posterior wall of the bladder (likely cath irritation). ?? 05/18/2025 3:28 PM [facility] LABORATORYGross DescriptionA) Received fresh labeled with the patient's name and posterior wall bladder biopsy, are 2 maroon-red soft tissues 0.4 cm and 0.5 cm in greatest dimension which are submitted entirely in 1 cassette. TTP 3:28 PM [facility] Microscopic DescriptionThe final diagnosis is based on microscopic examination of appropriate sections of all specimens.05/18/2025 3:28 PM [facility] LABORATORYAdditional Information Interpreted at [facility] - [address] [place] [address], [place] [address]/18/2025 3:28 PM [facility] LABORATORYSpecimen (Source)Anatomical Location / LateralityCollection Method / VolumeCollection TimeReceived TimeBiopsy (Bladder Biopsy)05/17/2025 11:40 AM CDT05/17/2025 11:58 AM CDT Narrative Authorizing ProviderResult TypeResult StatusPaul Venkatesh Underwood MD PATHOLOGY/CYTOLOGYFinal ResultPerforming OrganizationAddressCity/State/ZIP Code Phone Number [facility] [address] [place] [address], * HCHG MASK PR5 (05/17/2025 11:15 AM CDT) Narrative Suresh Ceja CRNA - 05/17/2025 11:15 AM CDT Suresh Ceja CRNA 05/17/2025 11:15 AM Procedure: Supraglottic Patient location during procedure: OR Supraglottic Airway Properties Mask Ventilation: easy Type: unique Tube Size: 3 Insertion Attempts: 1 Placement Verification: auscultation and CO2 detection Assessment Assessment: atraumatic and dentition unchanged Authorizing ProviderResult TypeResult StatusJovanny Yuen MDANESTHESIA PX NOTE ORDERABLESFinal Result * (ABNORMAL) LIPID PANEL W REFLEX MEASURED LDL (01/10/2025 3:21 PM CDT)Component ValueRef RangeTest MethodAnalysis TimePerformed AtPathologist Signature CHOLESTEROL, OWSUR901<200 mg/dLQuest PenneoeHDL OEUZYXZCUFF48> OR = 50 mg/dLQuest PenneoeTRIGLYCERIDES116<150 mg/dLQuest PenneoeLDL-ODAISFINLBU279(H)mg/dL (calc)Koru DaleComment: Reference range: <100 Desirable range <100 mg/dL for primary prevention; <70 mg/dL for patients with CHD or diabetic patients with > or = 2 CHD risk factors. LDL-C is now calculated using the Javier-Jasson calculation, which is a validated novel method providing better accuracy than the Friedewald equation in the estimation of LDL-C. Javier SS et al. SATURNINO. 2013;310(19): 2165-8945 (http://education.[employer]/faq/NED761) CHOL/HDLC RATIO3.3<5.0 (calc)Koru DaleNON HDL JHNJHULOHTD901 (H)<130 mg/dL (calc)Koru DaleComment: For patients with diabetes plus 1 major ASCVD risk factor, treating to a non-HDL-C goal of <100 mg/dL (LDL-C of <70 mg/dL) is considered a therapeutic option. Specimen (Source)Anatomical Location / LateralityCollection Method / Volume Collection TimeReceived TimeBloodBLOOD SPECIMEN / Jnxskhu5101/10/2025 3:21 PM CDT 01/10/2025 3:25 PM CDT Narrative Authorizing ProviderResult TypeResult StatusSiri Sosa Shaqra DOCHEMISTRYFinal ResultPerforming OrganizationAddressCity/State/ZIP CodePhone Number [facility] [address] [place] [address], [place] [phone] [facility] [address] [place] [address] * LC HCV ANTIBODY RFX TO QUANT PCR (10/28/2022 8:50 AM MANAGER FIELD)ComponentValueRef RangeTest MethodAnalysis TimePerformed AtPathologist SignatureHCV AbNon ReactiveNon Tlaqenag78/11/2023 6:07 PM CSTLABST. [facility] ([facility])Specimen (Source)Anatomical Location / Laterality Collection Method / VolumeCollection TimeReceived TimeBloodBLOOD SPECIMEN / UnknownVenipuncture / Innydab4910/28/2022 8:50 AM CST10/28/2022 8:54 AM MANAGER FIELD Narrative [facility] ([facility]) - 10/31/2022 6:07 PM MANAGER FIELD Performed at: [address] ??[id number] Peanut Shaker: Shaun Cruz MD, Phone: ??[phone] Authorizing ProviderResult TypeResult StatusSiri Sosa Shaqra DOLABORATORYFinal ResultPerforming OrganizationAddressCity/State/ZIP CodePhone Number [facility]ST. [facility] [address] [place] [address] from Last 3 Months or Most Recently Relevant to Health Maintenance Insurance Advance Directives * Full Code (Latest Code Status on File) Date ActivatedDate InactivatedComments05/17/2025 8:28 AM9/ 5:52 PMQuestion AnswerCommentsCode Status Discussion:* Not Discussed * Full Code Date ActivatedDate InactivatedComments05/14/2014 10:10 AM05/14/2014 2:04 PM Care Teams Team MemberRelationshipSpecialtyStart DateEnd Date Lachelle Schilling DO [address] [place] [address] PCP - GeneralFamily Practice10/28/22 Devaughn Wadsworth MD Surgery - Urolog09/21/12
[2025-08-16 20:01] VITALS: PULSE 84; RESP 24; TEMP 36.6; O2SAT 95; BMI 22.5
--- NOTE | 2025-08-16 21:00 | ED.FEMALEGU ---
HPI - Female Genitourinary General Chief complaint: Urogenital Problems, Female Stated complaint: leaking catheter bag Time Seen by Provider: 08/16/25 19:52 History of Present Illness HPI Narrative: Patient is a 59-year-old woman who lives at [facility]. She has had suprapubic catheter in for quite some time and now is having leakage around the suprapubic catheter. We did do a bladder scan and there is only 59 mL of urine in the catheter. Patient has a catheter routinely changed once a month and is nearly due for a change. She showed no signs of infections. She has been acting normally with the exception of increased agitation as people have been trying to look at the urinary catheter. There is clearly leakage out of the catheter site. Related Data Home Medications ?Medication ?Instructions ?Recorded ?Confirmed cranberry complex 1 cap PO BID 06/02/22 04/09/25 fiber 1 tab PO DAILY 06/02/22 04/09/25 fluoxetine 40 mg capsule 40 mg PO DAILY 06/02/22 04/09/25 loratadine 10 mg tablet 10 mg PO DAILY 06/02/22 04/09/25 multivitamin with folic acid 400 1 tab PO DAILY 06/02/22 04/09/25 mcg tablet (Daily-Kathya (with folic acid)) oxybutynin chloride 10 mg mg PO 06/02/22 04/09/25 tablet,extended release 24 hr xanazine 06/02/22 04/09/25 calcium carbonate 400 mg/5 mL oral 400 mg PO 03/14/24 04/09/25 suspension lorazepam 1 mg tablet 1 mg PO BID 03/14/24 04/09/25 simethicone 125 mg capsule (Gas 125 mg PO TID-QID PRN 03/14/24 04/09/25 Relief (simethicone)) tetrabenazine 12.5 mg tablet 12.5 mg PO QDAY 03/14/24 04/09/25 Previous Rx's ?Medication ?Instructions ?Recorded guaifenesin 1,200 mg tablet, 1,200 mg PO BID #60 tabs 09/01/23 extended release 12 hr Allergies Allergy/AdvReac Type Severity Reaction Status Date / Time Sulfa (Sulfonamide Allergy Intermediate Verified 04/09/25 09:20 Antibiotics) Review of Systems Status of ROS: Reports: 6 or more systems reviewed and unremarkable except as noted in History and below [facility] Medical History Profound developmental delay ?R62.50 - Unspecified lack of expected normal physiological development in childhood (ICD-10) Social History Smoking Status: Never smoker Do you use any of these nicotine containing products: None Second hand tobacco smoke exposure: No How often do you have a drink containing alcohol: never How often do you have six or more drinks on one occasion: Never AUDIT-C Alcohol total score: 0 Non-prescribed substance use: denies use service: No Exam Narrative: Exam Narrative: EXAM GENERAL: Patient appears small and showing signs of obvious developmental delay. EYES: No scleral icterus. LYMPH: No supraclavicular or cervical lymphadenopathy. SKIN: Visible skin seen during exam normal or with benign process only. EXT: No dependent lower extremity pedal edema. HEART: Regular rate and rhythm with no murmurs, rubs, or gallops. LUNGS: Clear to auscultation bilaterally with no crackles or wheezes. ABD: Soft, non tender, non distended. Suprapubic Catheter site appears normal but there is some leakage of urine. PSYCH: Good eye contact, speech is not pressured. Const: Vital Signs, click to edit/add: Vital Signs - 24 hr 08/16/25 20:01 Temperature 97.8 F Pulse Rate [Right Pulse Oximeter] 84 Respiratory Rate 24 Pulse Oximetry 95 Oxygen Delivery Me thod Room Air Course Course ED Course: Patient seen examined. Postvoid residual review. Catheter successfully change with nursing assistance. Vital Signs Vital signs: Initial Vital Signs Temperature 97.8 F 08/16/25 20:01 Temperature Source Temporal Artery Scan 08/16/25 20:01 Pulse Rate 84 08/16/25 20:01 Pulse Rhythm Regular 08/16/25 20:01 Respiratory Rate 24 08/16/25 20:01 Pulse Oximetry 95 08/16/25 20:01 Oxygen Delivery Method Room Air 08/16/25 20:01 Vital Signs Temperature 97.8 F 08/16/25 20:01 Pulse Rate 84 08/16/25 20:01 Respiratory Rate 24 08/16/25 20:01 Pulse Oximetry 95 08/16/25 20:01 Oxygen Delivery Method Room Air 08/16/25 20:01 Temperature 97.8 F 08/16/25 20:01 Pulse Rate 84 08/16/25 20:01 Respiratory Rate 24 08/16/25 20:01 Pulse Oximetry 95 08/16/25 20:01 Oxygen Delivery Method Room Air 08/16/25 20:01 Discharge Plan Discharge Clinical Impression: Blocked suprapubic catheter Patient Disposition: Home w/ Parent or Adult Condition: Stable Additional Instructions: Continue current care Resume previous diet activity Reported any difficulty. Activity Level: Activity as Tolerated Discharge Diet: Regular Prescriptions: No Action guaifenesin 1,200 mg tablet extended release 12hr 1,200 mg PO BID Qty: 60 0RF tetrabenazine 12.5 mg tablet 12.5 mg PO QDAY simethicone [Gas Relief (simethicone)] 125 mg capsule 125 mg PO TID-QID PRN lorazepam 1 mg tablet 1 mg PO BID calcium carbonate 400 mg/5 mL suspension 400 mg PO fluoxetine 40 mg capsule 40 mg PO DAILY oxybutynin chloride 10 mg tablet extended release 24hr PO Patient Comments: TAKE TWO TABLETS BY MOUTH EVERY DAY GENERIC FOR DITROPAN XL loratadine 10 mg tablet 10 mg PO DAILY Patient Comments: TAKE ONE TABLET BY MOUTH EVERY DAY FOR ANTIHISTAMINE xanazine 12.5 mg multivitamin with folic acid [Daily-Kathya (with folic acid)] 400 mcg tablet 1 tab PO DAILY cranberry complex 1 cap PO BID fiber Tablet 1 tab PO DAILY Follow Up/Referrals: Lachelle Schilling DO [Primary Care Provider, Family Practice] Stand Alone Forms: [facility]
--- NOTE | 2025-08-16 21:31 | ED.NURSE ---
Patient here with two staff members. Order placed to change out Suprapubic catheter from . Per conversation with Mgmt at pts snf, [facility] recommends foregoing PRN medication and 'holding down' patient to change out the catheter. Staff was utilized to do this safely. The two staff from the patients snf held the patients leg and two ER staff assisted in holding the patients upper body/arms with the assistance of a sheet to cover the patients arms. Mgmt had reported that patient bit herself the last time they had changed out the catheter at their facility.
== END 2025-08-16 21:30 | disposition home or self-care (01) ==
PROVIDERS: Emergency Provider Internal Medicine; PCP Family Medicine
DX: T83.098A Other mechanical complication of other urinary catheter, initial encounter (principal)
CPT/HCPCS: 51705; 99283